=== PATIENT | male | born 1975 | race Caucasian/White ===

== ENCOUNTER 2016-11-30 16:05 | Observation (INO) | payer MEDICARE, OTHER ==
[~2016-11-30] VITALS: Ht 172.7 cm; Wt 77.2 kg
[2016-11-30] MEDS ORDERED: ONDANSETRON PF 4 MG/2 ML VIAL. IV PRN (17:00)
[2016-11-30] MEDS ORDERED: ACETAMINOPHEN 325 MG TABLET PO PRN (17:00)
[2016-11-30] MEDS ORDERED: KETOROLAC 30 MG/ML VIAL. IV PRN (17:00)
[2016-11-30 17:02] VITALS: BP 137/88
[2016-11-30 17:06] VITALS: BP 137/88
[2016-11-30 17:35] LABS: BASO # 0.2 x10^3/uL (0.0-0.2); BASO % 2 % (0-3); EOS # 0.3 x10^3/uL (0.0-0.7); EOS % 4 % (0-3); HEMATOCRIT 43.3 % (39.0-53.0); HEMOGLOBIN 14.6 g/dL (13.0-17.5); LYMPH # 2.8 x10^3/uL (1.0-4.8); LYMPH % 40 % (24-48); MEAN CORPUSCULAR HEMOGLOBIN 30 pg (25-35); MEAN CORPUSCULAR HGB CONC 34 g/dL (31-37); MEAN CORPUSCULAR VOLUME 89 fL (79-100); MONO # 0.7 x10^3/uL (0.0-1.1); MONO % 10 % (0-9); NEUT # 3.2 x10^3uL (1.8-7.7); NEUT % 45 % (31-73); PLATELET COUNT 183 x10^3/uL (140-400); RED BLOOD COUNT 4.85 x10^6/uL (4.30-5.70); RED CELL DISTRIBUTION WIDTH 14.8 % (11.5-14.5); WHITE BLOOD COUNT 7.1 x10^3/uL (4.0-11.0)
[2016-11-30 17:39] LABS: ALBUMIN 3.3 g/dL (3.4-5.0); CALCIUM 8.2 mg/dL (8.5-10.1); CREATININE 0.9 mg/dL (0.7-1.3); GFR 92.1; POTASSIUM 3.6 mmol/L (3.5-5.1); TOTAL BILIRUBIN 0.3 mg/dL (0.2-1.0); TOTAL PROTEIN 6.7 g/dL (6.4-8.2)
[2016-11-30] MEDS ORDERED: MELO15TA6 PO (17:46)
[2016-11-30] MEDS ORDERED: GABA-585 PO (17:46)
[2016-11-30] MEDS ORDERED: ESCI10TA10 PO (17:47)
[2016-11-30] MEDS ORDERED: CLON2TAB PO (17:47)
[2016-11-30] MEDS ORDERED: ZOLPIDEM 5 MG TABLET. PO PRN (18:00)
[2016-11-30] MEDS ORDERED: FENTANYL PF 250 MCG/5 ML VIAL. IV PRN (18:00)
[2016-11-30] MEDS ORDERED: IOHEXOL 300 MG/ML 75 ML VIAL. IV ONE (18:15)
[2016-11-30] MEDS ORDERED: FENTANYL PF 100 MCG/2 ML VIAL. IV PRN (18:15)
[2016-11-30 18:52] VITALS: BP 146/84
[2016-11-30 19:20] VITALS: BP 134/80
--- NOTE | 2016-11-30 19:28 | RAD ---
PROCEDURE CTA of the chest with contrast (pulmonary embolism protocol) 11/30/2016 HISTORY Shortness of breath. History of DVT. TECHNIQUE After the intravenous administration of 75 cc of Omnipaque 300, contiguous, 0.625 millimeter axial sections were obtained through the chest. 2 millimeter reconstructed axial and 3D MIP sagittal and coronal reconstructed images were obtained. One or more of the following individualized dose reduction techniques were utilized for this study: 1. Automated exposure control. 2. Adjustment of the mA and/or kV according to patient size. 3. Use of iterative reconstruction technique. FINDINGS No filling defect is seen within the major branches of either pulmonary artery. There is no CT evidence of pulmonary embolism. The thoracic aorta tapers normally. The heart is normal in size. No area of consolidation is seen. No pneumothorax or pleural effusion is noted. Mild S shaped curvature of the thoracolumbar spine is seen. IMPRESSION There is no CT evidence of pulmonary embolism. Electronically signed by: Hugo Desai MD (Nov 30, 2016 19:27:36)
[2016-11-30] MEDS: MELOXICAM 15 MG TABLET. PO SCH (20:13)
[2016-11-30] MEDS: GABAPENTIN 100 MG CAPSULE. PO SCH (20:14)
[2016-11-30] MEDS: ENOXAPARIN ** NOTE DOSE ** SYRINGE SQ SCH (20:14)
[2016-11-30] MEDS ORDERED: CLONAZEPAM 2 MG TABLET PO SCH (21:00)
[2016-11-30 21:45] VITALS: BP 145/83
[2016-11-30 23:35] VITALS: BP 119/71
[2016-12-01 01:30] VITALS: BP 121/78
[2016-12-01 03:35] VITALS: BP 113/68
[2016-12-01 05:55] VITALS: BP 119/79
[2016-12-01 06:36] LABS: BASO # 0.2 x10^3/uL (0.0-0.2); BASO % 2 % (0-3); EOS # 0.3 x10^3/uL (0.0-0.7); EOS % 5 % (0-3); HEMATOCRIT 44.2 % (39.0-53.0); HEMOGLOBIN 14.9 g/dL (13.0-17.5); LYMPH # 2.7 x10^3/uL (1.0-4.8); LYMPH % 42 % (24-48); MEAN CORPUSCULAR HEMOGLOBIN 30 pg (25-35); MEAN CORPUSCULAR HGB CONC 34 g/dL (31-37); MEAN CORPUSCULAR VOLUME 89 fL (79-100); MONO # 0.7 x10^3/uL (0.0-1.1); MONO % 11 % (0-9); NEUT # 2.5 x10^3uL (1.8-7.7); NEUT % 39 % (31-73); PLATELET COUNT 149 x10^3/uL (140-400); RED BLOOD COUNT 4.96 x10^6/uL (4.30-5.70); RED CELL DISTRIBUTION WIDTH 14.7 % (11.5-14.5); WHITE BLOOD COUNT 6.3 x10^3/uL (4.0-11.0)
[2016-12-01 06:46] LABS: CALCIUM 8.3 mg/dL (8.5-10.1); CREATININE 0.9 mg/dL (0.7-1.3); GFR 92.1; POTASSIUM 3.9 mmol/L (3.5-5.1)
[2016-12-01] MEDS ORDERED: TETANUS AND DIPHTHERIA TOX/PF 0.5 ML VIAL. VAX IM ONE (08:00)
[2016-12-01] MEDS ORDERED: ESCITALOPRAM 10 MG TABLET. PO SCH (09:00)
[2016-12-01] MEDS: ENOXAPARIN ** NOTE DOSE ** SYRINGE SQ SCH (09:22)
[2016-12-01] MEDS: GABAPENTIN 100 MG CAPSULE. PO SCH (09:22)
[2016-12-01] MEDS: MELOXICAM 15 MG TABLET. PO SCH (09:22)
[2016-12-01 11:46] VITALS: BP 144/78
[2016-12-01] MEDS ORDERED: APIX5TAB PO (11:47)
[2016-12-01] MEDS ORDERED: APIXABAN 5 MG TABLET. PO ONE (12:00)
== END 2016-12-01 12:40 | disposition home or self-care (01) ==
LOC: ER 16:10 → EDSTATUS 16:29 → INTOOBSV 16:30 → ICU 16:30
PROVIDERS: ADMIT Family Medicine; ATTEND Family Medicine
DX: M79.671 Pain in right foot (principal); W14.XXXD Fall from tree, subsequent encounter; Z72.0 Tobacco use
CPT/HCPCS: 36415; 71275; 80048; 80053; 83605; 85027; 85610; 87641; 90471; 90714; 96372; 96374; 96375; 99285; G0378; J1650; J3010; Q9967; G0379

== ENCOUNTER 2017-09-11 12:43 | Observation (INO) | payer OTHER ==
[~2017-09-11] VITALS: Ht 170.2 cm; Wt 72.1 kg
[~2017-09-11 12:43] MED LIST: APIX5TAB3 PO; CLON2TAB PO; GABA-585 PO; LEXAPRO10 MG PO; MELO15TA6 PO
[2017-09-11 14:14] LABS: AMPHETAMINE/METHAMPHETAMINE NEG (NEG); BARBITURATES NEG (NEG); BENZODIAZEPINES NEG (NEG); CANNABINOIDS NEG (NEG); COCAINE NEG (NEG); METHADONE NEG (NEG); OPIATES NEG (NEG); PHENCYCLIDINE NEG (NEG)
[2017-09-11] MEDS: NICOTINE POLACRILEX GUM 2 MG GUM. BC PRN ×3 (15:24→18:25)
[2017-09-11 15:29] LABS: BASO # 0.2 x10^3/uL (0.0-0.2); BASO % 1 % (0-3); EOS # 0.1 x10^3/uL (0.0-0.7); EOS % 1 % (0-3); HEMATOCRIT 50.9 % (39.0-53.0); HEMOGLOBIN 17.4 g/dL (13.0-17.5); LYMPH # 2.7 x10^3/uL (1.0-4.8); LYMPH % 21 % (24-48); MEAN CORPUSCULAR HEMOGLOBIN 30 pg (25-35); MEAN CORPUSCULAR HGB CONC 34 g/dL (31-37); MEAN CORPUSCULAR VOLUME 88 fL (79-100); MONO # 1.1 x10^3/uL (0.0-1.1); MONO % 8 % (0-9); NEUT # 8.9 x10^3uL (1.8-7.7); NEUT % 69 % (31-73); PLATELET COUNT 108 x10^3/uL (140-400); RED BLOOD COUNT 5.76 x10^6/uL (4.30-5.70); RED CELL DISTRIBUTION WIDTH 14.2 % (11.5-14.5)
[2017-09-11 15:38] LABS: ALBUMIN 3.7 g/dL (3.4-5.0); CALCIUM 9.3 mg/dL (8.5-10.1); GFR 81.6; TOTAL BILIRUBIN 0.4 mg/dL (0.2-1.0); TOTAL PROTEIN 7.4 g/dL (6.4-8.2)
[2017-09-11 15:45] LABS: ACETAMIN < 2.0 mcg/mL (10-30); ETHANOL < 10 mg/dL (0-10); SALIC 5.5 mg/dL (2.8-20.0)
[2017-09-11 15:46] LABS: POTASSIUM 2.8 mmol/L (3.5-5.1)
[2017-09-11] MEDS ORDERED: POTASSIUM CHLORIDE 20MEQ 100 ML IV SCH (17:00)
[2017-09-11] MEDS ORDERED: OLANZapine 2.5 MG TABLET PO ONE (17:00)
--- NOTE | 2017-09-11 17:04 | PHYS DOC ---
Past History Past Medical History: DVT, Schizophrenia Past Surgical History: No Surgical History Alcohol Use: Occasionally Drug Use: None Social History Narrative: history of drug abuse Adult General Chief Complaint Chief Complaint: MANIC BEHAVIOR HPI HPI Patient is a 41 year old M who presents with altered mental status over the past 2 weeks patient is an increasing paranoia. He said medication changes about 2 weeks ago at which time he was started on an Pulido. He was previously on Zyprexa 5 mg which was stopped 2 weeks ago when an Pulido was started due to increasing sedation. Review of Systems Review of Systems Constitutional: Denies fever or chills [] Eyes: Denies change in visual acuity, redness, or eye pain [] HENT: Denies nasal congestion or sore throat [] Respiratory: Denies cough or shortness of breath [] Cardiovascular: No additional information not addressed in HPI [] GI: Denies abdominal pain, nausea, vomiting, bloody stools or diarrhea [] : Denies dysuria or hematuria [] Musculoskeletal: Denies back pain or joint pain [] Integument: Denies rash or skin lesions [] Neurologic: Denies headache, focal weakness or sensory changes [] Endocrine: Denies polyuria or polydipsia [] All other systems were reviewed and found to be within normal limits, except as documented in this note. Family History Family History No pertinent family medical history reported Current Medications Current Medications Current Medications Medications (Trade) Dose Ordered Sig/Linn Start Time Stop Time Status Last Admin Dose Admin Nicotine Polacrilex (Nicorette Gum) 2 mg PRN Q1HR PRN 09/11/17 15:15 09/11/17 15:24 2 MG Olanzapine (ZyPREXA) 5 mg 1X ONCE 09/11/17 17:00 09/11/17 17:01 Potassium Chloride 100 ml @ 50 mls/hr Q1H 09/11/17 17:00 09/11/17 18:59 Allergies Allergies Allergies Coded Allergies Type Severity Reaction Last Updated Verified Penicillins Allergy Mild 11/30/16 Yes Physical Exam Physical Exam Constitutional: Well developed, well nourished, no acute distress, non-toxic appearance. [] HENT: Normocephalic, atraumatic, bilateral external ears normal, oropharynx moist, no oral exudates, nose normal. [] Eyes: PERRLA, EOMI, conjunctiva normal, no discharge. [] Neck: Normal range of motion, no tenderness, supple, no stridor. [] Cardiovascular:Heart rate regular rhythm, Lungs & Thorax: Bilateral breath sounds clear to auscultation [] Abdomen: Bowel sounds normal, soft, no tenderness, no masses, no pulsatile masses. [] Skin: Warm, dry, no erythema, no rash. [] Back: No tenderness, no CVA tenderness. [] Extremities: No tenderness, no cyanosis, no clubbing, ROM intact, no edema. [] Neurologic: Alert and oriented X 3, normal motor function, normal sensory function, no focal deficits noted. [] Psychologic: Abnormal behavior Current Patient Data Vital Signs Vital Signs Date Time Temp Pulse Resp B/P (MAP) Pulse Ox O2 Delivery O2 Flow Rate FiO2 09/11/17 12:50 98.3 106 18 99 Room Air Lab Results Laboratory Tests Test 09/11/17 13:54 09/11/17 15:03 Urine Opiates Screen Neg (NEG) Urine Methadone Screen Neg (NEG) Urine Barbiturates Neg (NEG) Urine Phencyclidine Screen Neg (NEG) Urine Amphetamine/Methamphetamine Neg (NEG) Urine Benzodiazepines Screen Neg (NEG) Urine Cocaine Screen Neg (NEG) Urine Cannabinoids Screen Neg (NEG) Urine Ethyl Alcohol Neg (NEG) White Blood Count 13.0 x10^3/uL (4.0-11.0) H Red Blood Count 5.76 x10^6/uL (4.30-5.70) H Hemoglobin 17.4 g/dL (13.0-17.5) Hematocrit 50.9 % (39.0-53.0) Mean Corpuscular Volume 88 fL (79-100) Mean Corpuscular Hemoglobin 30 pg (25-35) Mean Corpuscular Hemoglobin Concent 34 g/dL (31-37) Red Cell Distribution Width 14.2 % (11.5-14.5) Platelet Count 108 x10^3/uL (140-400) L Neutrophils (%) (Auto) 69 % (31-73) Lymphocytes (%) (Auto) 21 % (24-48) L Monocytes (%) (Auto) 8 % (0-9) Eosinophils (%) (Auto) 1 % (0-3) Basophils (%) (Auto) 1 % (0-3) Neutrophils # (Auto) 8.9 x10^3uL (1.8-7.7) H Lymphocytes # (Auto) 2.7 x10^3/uL (1.0-4.8) Monocytes # (Auto) 1.1 x10^3/uL (0.0-1.1) Eosinophils # (Auto) 0.1 x10^3/uL (0.0-0.7) Basophils # (Auto) 0.2 x10^3/uL (0.0-0.2) Sodium Level 142 mmol/L (136-145) Potassium Level 2.8 mmol/L (3.5-5.1) *L Chloride Level 103 mmol/L (98-107) Carbon Dioxide Level 29 mmol/L (21-32) Anion Gap 10 (6-14) Blood Urea Nitrogen 6 mg/dL (8-26) L Creatinine 1.0 mg/dL (0.7-1.3) Estimated GFR (Cockcroft-Gault) 81.6 BUN/Creatinine Ratio 6 (6-20) Glucose Level 107 mg/dL (70-99) H Calcium Level 9.3 mg/dL (8.5-10.1) Total Bilirubin 0.4 mg/dL (0.2-1.0) Aspartate Amino Transferase (AST) 16 U/L (15-37) Alanine Aminotransferase (ALT) 25 U/L (16-63) Alkaline Phosphatase 93 U/L (46-116) Total Protein 7.4 g/dL (6.4-8.2) Albumin 3.7 g/dL (3.4-5.0) Albumin/Globulin Ratio 1.0 (1.0-1.7) Salicylates Level 5.5 mg/dL (2.8-20.0) Salicylate Last Dose Date 09/11/17 Salicylate Last Dose Time 1500 Acetaminophen Level < 2.0 mcg/mL (10-30) L Acetaminophen Last Dose Date 09/11/17 Acetaminophen Last Dose Time 1500 Ethyl Alcohol Level < 10 mg/dL (0-10) EKG EKG Normal sinus rhythm Radiology/Procedures Radiology/Procedures [] Course & Med Decision Making Course & Med Decision Making Pertinent Labs and Imaging studies reviewed. (See chart for details) Tele-psych was consult. Please refer to consult note for specifics. Inpatient psychiatric admission for further evaluation as well as stabilization of current psychosis was recommended. medication changes were suggested. - Discontinuation of OxyContin mirtazapine and InVega was recommended. - Continue Lexapro 20 mg at bedtime. - Give Zyprexa 5 mg by mouth in the emergency room and 10 mg by mouth every at bedtime while the patient weights for psychiatric disposition. - Lorazepam 2 mg IM/by mouth every 4 hours when necessary anxiety/EPS Dragon Disclaimer Dragon Disclaimer This electronic medical record was generated, in whole or in part, using a voice recognition dictation system. Departure Departure: Impression: Primary Impression: Hypokalemia Additional Impression: Schizophrenia Disposition: ADMITTED INPATIENT Condition: STABLE Referrals: ALESSANDRO PHELPS MD (PCP) Problem Qualifiers Additional Impression: Schizophrenia Schizophrenia type: unspecified Qualified Codes: F20.9 - Schizophrenia, unspecified ALESSANDRO RAMOS MD Sep 11, 2017 17:04
[2017-09-11 17:35] VITALS: BP 139/80
[2017-09-11] MEDS ORDERED: POTASSIUM CHLORIDE 20 MEQ TABLET.ER. PO ONE (18:00)
[2017-09-11 18:48] VITALS: BP 139/80
--- NOTE | 2017-09-11 19:17 | PDOC ---
Exam Note: Franco Note: Please also refer to the separate dictated note~for this date of service dictated separately.~Patient seen individually. Discussed the patient with Nursing staff reviewed the chart.~Reviewed interim history and current functioning. Reviewed vital signs,~Labs/ Radiology~and current medications noted below. Continue current treatment with the changes noted in the dictated addendum note Assessment: Vital Signs: Vital Signs Date Time Temp Pulse Resp B/P (MAP) Pulse Ox O2 Delivery O2 Flow Rate FiO2 09/11/17 18:48 98.3 83 139/80 (99) 97 09/11/17 17:35 20 Room Air Labs: Laboratory Tests Test 09/11/17 13:54 09/11/17 15:03 Urine Opiates Screen Neg (NEG) Urine Methadone Screen Neg (NEG) Urine Barbiturates Neg (NEG) Urine Phencyclidine Screen Neg (NEG) Urine Amphetamine/Methamphetamine Neg (NEG) Urine Benzodiazepines Screen Neg (NEG) Urine Cocaine Screen Neg (NEG) Urine Cannabinoids Screen Neg (NEG) Urine Ethyl Alcohol Neg (NEG) White Blood Count 13.0 x10^3/uL (4.0-11.0) H Red Blood Count 5.76 x10^6/uL (4.30-5.70) H Hemoglobin 17.4 g/dL (13.0-17.5) Hematocrit 50.9 % (39.0-53.0) Mean Corpuscular Volume 88 fL (79-100) Mean Corpuscular Hemoglobin 30 pg (25-35) Mean Corpuscular Hemoglobin Concent 34 g/dL (31-37) Red Cell Distribution Width 14.2 % (11.5-14.5) Platelet Count 108 x10^3/uL (140-400) L Neutrophils (%) (Auto) 69 % (31-73) Lymphocytes (%) (Auto) 21 % (24-48) L Monocytes (%) (Auto) 8 % (0-9) Eosinophils (%) (Auto) 1 % (0-3) Basophils (%) (Auto) 1 % (0-3) Neutrophils # (Auto) 8.9 x10^3uL (1.8-7.7) H Lymphocytes # (Auto) 2.7 x10^3/uL (1.0-4.8) Monocytes # (Auto) 1.1 x10^3/uL (0.0-1.1) Eosinophils # (Auto) 0.1 x10^3/uL (0.0-0.7) Basophils # (Auto) 0.2 x10^3/uL (0.0-0.2) Sodium Level 142 mmol/L (136-145) Potassium Level 2.8 mmol/L (3.5-5.1) *L Chloride Level 103 mmol/L (98-107) Carbon Dioxide Level 29 mmol/L (21-32) Anion Gap 10 (6-14) Blood Urea Nitrogen 6 mg/dL (8-26) L Creatinine 1.0 mg/dL (0.7-1.3) Estimated GFR (Cockcroft-Gault) 81.6 BUN/Creatinine Ratio 6 (6-20) Glucose Level 107 mg/dL (70-99) H Calcium Level 9.3 mg/dL (8.5-10.1) Total Bilirubin 0.4 mg/dL (0.2-1.0) Aspartate Amino Transferase (AST) 16 U/L (15-37) Alanine Aminotransferase (ALT) 25 U/L (16-63) Alkaline Phosphatase 93 U/L (46-116) Total Protein 7.4 g/dL (6.4-8.2) Albumin 3.7 g/dL (3.4-5.0) Albumin/Globulin Ratio 1.0 (1.0-1.7) Salicylates Level 5.5 mg/dL (2.8-20.0) Salicylate Last Dose Date 09/11/17 Salicylate Last Dose Time 1500 Acetaminophen Level < 2.0 mcg/mL (10-30) L Acetaminophen Last Dose Date 09/11/17 Acetaminophen Last Dose Time 1500 Ethyl Alcohol Level < 10 mg/dL (0-10) Current Medications: Meds: Current Medications Nicotine Polacrilex (Nicorette Gum) 2 mg PRN Q1HR PRN BC SMOKING CESSATION Last administered on 09/11/17 18:25; Start 09/11/17 at 15:15 Olanzapine (ZyPREXA) 5 mg 1X ONCE PO Last administered on 09/11/17 16:57; Start 09/11/17 at 17:00; Stop 09/11/17 at 17:01; Status DC Potassium Chloride 100 ml @ 50 mls/hr Q1H IV Last administered on 12/10/17at 17:03; Start 09/11/17 at 17:00; Stop 09/11/17 at 17:43; Status DC Potassium Chloride (Klor-Con) 40 meq 1X ONCE PO ; Start 09/11/17 at 18:00; Stop 09/11/17 at 18:00; Status DC Apixaban (Eliquis) 10 mg BID PO ; Start 09/11/17 at 21:00; Stop 09/11/17 at 21 :00; Status DC Potassium Chloride (Klor-Con) 20 meq TID PO ; Start 09/11/17 at 20:00 Apixaban (Eliquis) 5 mg BID PO ; Start 09/11/17 at 21:00 Active Scripts Active Eliquis (Apixaban) 5 Mg Tablet 10 Mg PO BID Reported Lexapro (Escitalopram Oxalate) 10 Mg Tablet 1 Tab PO HS Klonopin (Clonazepam) 2 Mg Tablet 1 Tab PO HS Mobic (Meloxicam) 15 Mg Tablet 1 Tab PO DAILY Gabapentin 100 Mg Capsule 100 Mg PO BID I have reviewed the current psychotropics carefully including drug interactions. Risk benefit ratio favors no change other than as noted in my dictated progress note. Diagnosis: Problems: (1) Schizophrenia MARC MAURICIO MD Sep 11, 2017 19:17
[2017-09-11] MEDS ORDERED: ESCITALOPRAM OX20 MG PO (19:29)
[2017-09-11] MEDS ORDERED: OXCA150T PO (19:29)
[2017-09-11] MEDS ORDERED: PALI6TAB3 PO (19:29)
[2017-09-11] MEDS ORDERED: ESCITALOPRAM OX10 MG PO (19:50)
[2017-09-11] MEDS: OLANZapine 10 MG TABLET PO SCH (20:03)
[2017-09-11] MEDS: DIVALPROEX 125 MG CAP.SPRINK PO SCH (20:03)
[2017-09-11] MEDS: APIXABAN 5 MG TABLET. PO SCH (20:03)
[2017-09-11] MEDS: POTASSIUM CHLORIDE 20 MEQ TABLET.ER. PO SCH ×2 (20:03→20:16)
[2017-09-11 20:11] VITALS: BP 142/84
[2017-09-11] MEDS ORDERED: PNEUMOC CONJ VACC 23-VALENT 0.5 ML VIAL. VAX IM ONE (21:00)
[2017-09-11] MEDS ORDERED: APIXABAN 5 MG TABLET. PO SCH (21:00)
[2017-09-11 22:06] LABS: OVALOCYTES OCC; PLT ESTIMATE ADEQUATE (ADEQUATE)
[2017-09-11 22:24] LABS: PLATELET CLUMP PRESENT
[2017-09-11 22:25] LABS: STOMATOCYTES OCC
[2017-09-12] MEDS ORDERED: ACETAMINOPHEN 500 MG TABLET PO PRN (01:30)
[2017-09-12 01:58] VITALS: BP 124/73
--- NOTE | 2017-09-12 02:38 | CONS ---
DATE OF CONSULTATION: 09/11/2017 IDENTIFYING DATA: The patient is a 41-year-old male seen in bed [address] [facility] for a psychiatric consult requested by Dr. James on account of the patient appearing manic, grandiose, psychotic, for which he has been followed at the [facility]. I met with the patient's mother as well who lives in the home with the patient and the patient's 3 daughters and mother is very knowledgeable on the patient's history. CHIEF COMPLAINT: "I have been seeing Lucius at the [facility]." "He was doing well on Zyprexa 5 mg a day, but he was very sleepy and this stopped and changed to Invega along with Trileptal, but since then he has not been eating well and ____ he sees things and people in the home when no one is there, he has been agitated." Mother. HISTORY OF PRESENT ILLNESS: The patient has a history of schizoaffective disorder, bipolar type versus schizophrenia versus bipolar disorder, mixed with psychotic features. He has a remote history of drug abuse, but nothing recently. He was granted custody of his three children and lives in the home with his children and his mother. Previously, he had followed by Dr. Pope, but more recently with the [facility]. Mother states in the past, he was on Klonopin, Geodon, Risperdal, Abilify amongst other psychotropics, had failed all of this and in the recent past had been on Trileptal along with Lexapro 20 mg a day and Zyprexa as noted. Zyprexa was changed to Invega recently. The patient often sees a room full of people in his home when no one is there, talking about the devil and God, quite psychotic. The patient is also being seen aliens in his home. PAST PSYCHIATRIC HISTORY: As above. The patient was initially diagnosed with bipolar disorder versus schizoaffective disorder in 2000. The patient has a past history of drug abuse as well. PAST MEDICAL HISTORY: Past history of DVT, on Eliquis. CURRENT PSYCHOTROPICS: Celexa 20 mg a day, which was substituted for Lexapro 20 mg a day at the time of this patient's hospitalization. Invega 6 mg a day, ALLERGIES: PENICILLIN, BREXPIPRAZOLE, OXCARBAZEPINE, PALIPERIDONE, RISPERIDONE, ZIPRASIDONE. CODE STATUS: Full code. FAMILY HISTORY: Psychotic symptoms in his biological father. MENTAL STATUS EXAMINATION: The patient lying in bed, oriented to himself and situations. Associations loose. Speech coherent, at times a little pressured, somewhat socially inappropriate, appeared psychotic. No active suicidal or homicidal ideation. Attention span short. Language function intact. Intellect average. Insight somewhat limited. Judgment marginal. LABORATORY DATA: Reviewed. IMPRESSION: Schizoaffective disorder, bipolar type, mixed with psychotic features, bipolar 1 disorder, mixed with psychotic features; psychotic disorder, unspecified. Rest unchanged. PLAN: I had a lengthy discussion with the patient and his mother. We will proceed with a CT head since mother is unsure if one has been done and he is having significant visual hallucinations. We would like to make sure there is no intracranial lesion to account for these symptoms. Continue Celexa 20 mg a day. Start Zyprexa 10 mg at bedtime. His mother states the patient responded very well to Zyprexa other than over sedation and he was given 5 mg Zyprexa in the ER it certainly has not made him sedated. We will also start Depakote ER 500 mg p.o. at bedtime as a mood stabilizer. Check CBC, CMP, valproic acid level in [address] James, thank you for the opportunity to participate in your patient's care. We will follow with you. MAN Jhonny MAURICIO MD DR: MEET/dante JOB#: [id number] / [id number]
[2017-09-12 05:13] VITALS: BP 119/75
[2017-09-12] MEDS: NICOTINE POLACRILEX GUM 2 MG GUM. BC PRN ×4 (06:18→22:55)
[2017-09-12 06:59] LABS: CALCIUM 8.6 mg/dL (8.5-10.1); CREATININE 1.1 mg/dL (0.7-1.3); GFR 73.1; POTASSIUM 3.1 mmol/L (3.5-5.1)
[2017-09-12 07:05] LABS: BASO # 0.2 x10^3/uL (0.0-0.2); BASO % 2 % (0-3); EOS # 0.4 x10^3/uL (0.0-0.7); EOS % 4 % (0-3); HEMATOCRIT 47.4 % (39.0-53.0); HEMOGLOBIN 16.1 g/dL (13.0-17.5); LYMPH # 3.7 x10^3/uL (1.0-4.8); LYMPH % 36 % (24-48); MEAN CORPUSCULAR HEMOGLOBIN 30 pg (25-35); MEAN CORPUSCULAR HGB CONC 34 g/dL (31-37); MEAN CORPUSCULAR VOLUME 89 fL (79-100); MONO # 0.9 x10^3/uL (0.0-1.1); MONO % 9 % (0-9); NEUT % 49 % (31-73); PLATELET COUNT 105 x10^3/uL (140-400); RED BLOOD COUNT 5.32 x10^6/uL (4.30-5.70); RED CELL DISTRIBUTION WIDTH 14.1 % (11.5-14.5); WHITE BLOOD COUNT 10.2 x10^3/uL (4.0-11.0)
[2017-09-12] MEDS: APIXABAN 5 MG TABLET. PO SCH ×2 (09:10→20:43)
[2017-09-12] MEDS: CITALOPRAM 20 MG TABLET. PO SCH (09:10)
[2017-09-12] MEDS: POTASSIUM CHLORIDE 20 MEQ TABLET.ER. PO SCH ×3 (09:11→20:42)
[2017-09-12 10:43] VITALS: BP 144/96
--- NOTE | 2017-09-12 10:43 | HP ---
ADMIT DATE: 09/11/2017 HISTORY OF PRESENT ILLNESS: This 41-year-old gentleman has altered mental status here in the last 2 weeks with increased paranoia. He has had medication changes about 2 weeks ago and has been started on Invega and previously on Zyprexa 5 mg, which was stopped 2 weeks ago when he started the new medication due to increased sedation, although he did have the paranoia or the hallucinations when he was on the Zyprexa. In any case, the patient was also noted to have a low potassium of 2.8. He was admitted to the hospital for further evaluation and treatment to help evaluate that and to get his potassium up. FAMILY HISTORY: Positive for diabetes in the father. PAST MEDICAL HISTORY: Respiratory problem with asthma, schizophrenia, paranoid ideation. He has had some clotting problems of DVTs and is on Eliquis for clotting abnormalities. MEDICATIONS: Include Celexa 20 mg a day, Tylenol, Zyprexa 10 mg a day, Depakote 500 mg at bedtime, Eliquis 5 mg b.i.d., potassium 20 mEq t.i.d. and Nicorette gum. ALLERGIES: He has allergies to PENICILLIN, BREXPIPRAZOLE, OXCARBAZEPINE, PALIPERIDONE, RISPERIDONE, and ZIPRASIDONE. SOCIAL HISTORY: The patient does apparently smoke and trying to quit smoking. Denies hard drug use. REVIEW OF SYSTEMS: Basically unremarkable. Denies headaches, vision change, blurred vision, or double vision. Denies chest pain, shortness of breath, or abdominal pain. Denies any melena, hematochezia, or hematemesis. Genitourinary unremarkable. Neurologically stable except for his increase in paranoia and hallucinations. PHYSICAL EXAMINATION: GENERAL: This is a pleasant white male, very cooperative. VITAL SIGNS: Blood pressure 120/80, respiratory rate 18, pulse 60, afebrile. HEENT: The patient's head was atraumatic, normocephalic. Eyes: PERRLA without jaundice. Mouth and throat were normal. NECK: Supple. LUNGS: Clear. CARDIOVASCULAR: Regular sinus rhythm. ABDOMEN: Soft and nontender. No rebound or guarding. Positive bowel sounds. No hepatosplenomegaly was noted. EXTREMITIES: No clubbing, cyanosis, or edema. NEUROLOGIC: The patient was alert and oriented x 3. LABORATORY DATA: 2.8 up to 3.1. Sodium was stable as well as kidney function. White count went from 13 down to 10, hemoglobin and hematocrit 16/47. IMPRESSION AND PLAN: In any case, the patient will be admitted for further evaluation of hypokalemia, change in mental status, history of schizophrenia, hallucinations, and paranoia. The patient was seen by Dr. Angulo who is kind enough to review the patient and make timely suggestions about his care. We will get a CT scan per Dr. Angulo's recommendation and then hopefully ready for discharge home. He will still be continued to be discharged and have his medication monitored. ALESSANDRO PHELPS MD DR: LORI/dante JOB#: [id number] / [id number]
--- NOTE | 2017-09-12 13:04 | RAD ---
Indication: Altered mental status, 41-year-old. Technique: Noncontrast CT head was obtained. Comparison is from December 04, 2008. One or more of the following individualized dose reduction techniques were utilized for this examination: 1. Automated exposure control 2. Adjustment of the mA and/or kV according to patient size 3. Use of iterative reconstruction technique Findings: The ventricles are normal in size and configuration for age. There is no acute intracranial hemorrhage or extra-axial fluid collection. There is no mass effect or midline shift. There is no CT evidence of an acute infarct, robledo-white differentiation is maintained. There is no depressed skull fracture. The included paranasal sinuses and mastoid air cells are clear. Impression: No acute intracranial findings.
--- NOTE | 2017-09-12 18:37 | PDOC ---
Exam Note: Franco Note: Please also refer to the separate dictated note~for this date of service dictated separately.~Patient seen individually. Discussed the patient with Nursing staff reviewed the chart.~Reviewed interim history and current functioning. Reviewed vital signs,~Labs/ Radiology~and current medications noted below. Continue current treatment with the changes noted in the dictated addendum note Assessment: Vital Signs: Vital Signs Date Time Temp Pulse Resp B/P (MAP) Pulse Ox O2 Delivery O2 Flow Rate FiO2 09/12/17 10:43 97.9 63 20 144/96 (112) 98 Room Air I&O Intake and Output 09/12/17 07:00 Intake Total 590 ml Balance 590 ml Intake Oral 590 ml # Voids 4 Labs: Laboratory Tests Test 09/12/17 06:16 White Blood Count 10.2 x10^3/uL (4.0-11.0) Red Blood Count 5.32 x10^6/uL (4.30-5.70) Hemoglobin 16.1 g/dL (13.0-17.5) Hematocrit 47.4 % (39.0-53.0) Mean Corpuscular Volume 89 fL (79-100) Mean Corpuscular Hemoglobin 30 pg (25-35) Mean Corpuscular Hemoglobin Concent 34 g/dL (31-37) Red Cell Distribution Width 14.1 % (11.5-14.5) Platelet Count 105 x10^3/uL (140-400) L Neutrophils (%) (Auto) 49 % (31-73) Lymphocytes (%) (Auto) 36 % (24-48) Monocytes (%) (Auto) 9 % (0-9) Eosinophils (%) (Auto) 4 % (0-3) H Basophils (%) (Auto) 2 % (0-3) Neutrophils # (Auto) 5.0 x10^3uL (1.8-7.7) Lymphocytes # (Auto) 3.7 x10^3/uL (1.0-4.8) Monocytes # (Auto) 0.9 x10^3/uL (0.0-1.1) Eosinophils # (Auto) 0.4 x10^3/uL (0.0-0.7) Basophils # (Auto) 0.2 x10^3/uL (0.0-0.2) Sodium Level 144 mmol/L (136-145) Potassium Level 3.1 mmol/L (3.5-5.1) L Chloride Level 105 mmol/L (98-107) Carbon Dioxide Level 31 mmol/L (21-32) Anion Gap 8 (6-14) Blood Urea Nitrogen 9 mg/dL (8-26) Creatinine 1.1 mg/dL (0.7-1.3) Estimated GFR (Cockcroft-Gault) 73.1 Glucose Level 110 mg/dL (70-99) H Calcium Level 8.6 mg/dL (8.5-10.1) Current Medications: Meds: Current Medications Nicotine Polacrilex (Nicorette Gum) 2 mg PRN Q1HR PRN BC SMOKING CESSATION Last administered on 09/12/17 06:18; Start 09/11/17 at 15:15 Olanzapine (ZyPREXA) 5 mg 1X ONCE PO Last administered on 09/11/17 16:57; Start 09/11/17 at 17:00; Stop 09/11/17 at 17:01; Status DC Potassium Chloride 100 ml @ 50 mls/hr Q1H IV Last administered on 09/11/17 17:03; Start 09/11/17 at 17:00; Stop 09/11/17 at 17:43; Status DC Potassium Chloride (Klor-Con) 40 meq 1X ONCE PO ; Start 09/11/17 at 18:00; Stop 09/11/17 at 18:00; Status DC Apixaban (Eliquis) 10 mg BID PO ; Start 09/11/17 at 21:00; Stop 09/11/17 at 21 :00; Status DC Potassium Chloride (Klor-Con) 20 meq TID PO Last administered on 09/12/17 15: 09; Start 09/11/17 at 20:00 Apixaban (Eliquis) 5 mg BID PO Last administered on 09/12/17 09:10; Start at 21:00 Pneumococcal Polyvalent Vaccine (Pneumovax 23) 0.5 ml ONCE ONCE VAX IM ; Start 09/11/17 at 21:00; Stop 09/11/17 at 21:01; Status DC Divalproex Sodium (Depakote Sprinkles) 500 mg HS PO Last administered on 20:03; Start 09/11/17 at 21:00 Olanzapine (ZyPREXA) 10 mg QHS PO Last administered on 09/11/17 20:03; Start 09/11/17 at 21:00 Citalopram Hydrobromide (CeleXA) 20 mg DAILY PO Last administered on 09:10; Start 09/12/17 at 09:00 Acetaminophen (Tylenol) 650 mg PRN Q6HRS PRN PO PAIN / TEMP Last administered on 09/12/17 01:48; Start 09/12/17 at 01:30 Active Scripts Active Eliquis (Apixaban) 5 Mg Tablet 10 Mg PO BID Reported Escitalopram Oxalate 10 Mg Tablet 1 Tab PO DAILY Oxcarbazepine 150 Mg Tablet 150 Mg PO QHS Invega (Paliperidone) 6 Mg Tab.er.24 1 Tab PO DAILY I have reviewed the current psychotropics carefully including drug interactions. Risk benefit ratio favors no change other than as noted in my dictated progress note. Diagnosis: Problems: (1) Schizoaffective disorder, chronic condition with acute exacerbation (2) Schizophrenia MARC MAURICIO MD Sep 12, 2017 18:37
[2017-09-12 19:44] VITALS: BP 140/72
[2017-09-12] MEDS: DIVALPROEX 125 MG CAP.SPRINK PO SCH (20:42)
[2017-09-12] MEDS: OLANZapine 10 MG TABLET PO SCH (20:42)
[2017-09-12 23:03] VITALS: BP 133/86
[2017-09-13 06:31] VITALS: BP 122/77
[2017-09-13 07:06] LABS: CALCIUM 8.2 mg/dL (8.5-10.1); CREATININE 1.1 mg/dL (0.7-1.3); GFR 73.1; POTASSIUM 3.2 mmol/L (3.5-5.1)
[2017-09-13] MEDS: APIXABAN 5 MG TABLET. PO SCH (08:38)
[2017-09-13] MEDS: CITALOPRAM 20 MG TABLET. PO SCH (08:38)
[2017-09-13] MEDS: POTASSIUM CHLORIDE 20 MEQ TABLET.ER. PO SCH (08:38)
--- NOTE | 2017-09-13 09:06 | PN ---
DATE: 09/12/2017 SUBJECTIVE: The patient came in with a change in mental status. The patient is resting comfortably, is being adjusted on different medications Dr. Angulo has given to him. Potassium still a little bit low at 3.1 and I am still giving him return replacement potassium. OBJECTIVE: VITAL SIGNS: Otherwise, blood pressure is 140/70, respiratory rate 20, pulse 87, temperature 97.6. GENERAL: The patient is alert and oriented. LUNGS: Diminished, but clear. CARDIOVASCULAR: Stable. ABDOMEN: Soft. NEUROLOGIC: Does not seem to have any suicidal, homicidal, or hallucinatory behavior at the present time. IMPRESSION: Change in mental status as well as hypokalemia. Continue to monitor the patient accordingly and we will follow along with Dr. Angulo's expert advice on monitoring him in terms of change in his medication. IMPRESSION: Schizoaffective disorder, chronic condition with acute exacerbation of schizophrenia. ALESSANDRO PHELPS MD DR: LORI/dante JOB#: [id number] / [id number]
[2017-09-13] MEDS ORDERED: OLAN10TA9 PO (10:47)
[2017-09-13] MEDS ORDERED: DIVA125C3 PO (10:47)
[2017-09-13 11:10] VITALS: BP 154/92
--- NOTE | 2017-09-14 09:41 | PN ---
DATE: 09/12/2017 PSYCHIATRIC PROGRESS NOTE This is a late entry for 09/12/2017, covers the elements not covered in my initial note of 09/12/2017. SUBJECTIVE: I met with the patient evening of 09/12/2017. Discussed with nursing staff on a couple of occasions earlier in the day and met with the patient's mother as well the evening of 09/12/2017. Overall, the patient is doing better, less disorganized, more focused, less psychotic, less labile in his mood. We discussed at great length my recommendation for him to be transferred to an inpatient psychiatric facility to stabilize his psychotropics, but he is unsure of that. REVIEW OF SYSTEMS: No CV, , pulmonary, eye, ENT system symptoms on review. MENTAL STATUS EXAM: Oriented to himself and situation. Speech is coherent, less pressured. Abstraction fair, computation impaired, language function intact, attention span short. Mood and affect less labile. LABORATORY DATA: Reviewed. IMPRESSION: Unchanged from initial note. PLAN: Continue psychotropics mentioned in my initial note. MAN Jhonny MAURICIO MD DR: MEET/dante JOB#: [id number] / [id number]
== END 2017-09-13 13:30 ==
LOC: ER 12:43 → 1 SOUTH 17:31 → INTOOBSV 17:31
PROVIDERS: ADMIT Family Medicine; ATTEND Family Medicine
DX: F25.0 Schizoaffective disorder, bipolar type (principal); F31.60 Bipolar disorder, current episode mixed, unspecified; E87.6 Hypokalemia; Z87.01 Personal history of pneumonia (recurrent); J45.909 Unspecified asthma, uncomplicated; Z83.3 Family history of diabetes mellitus; F17.200 Nicotine dependence, unspecified, uncomplicated; Z86.718 Personal history of other venous thrombosis and embolism
CPT/HCPCS: 36415; 70450; 80048; 80053; 80307; 85025; 96365; 96366; 99285; G0378; G0379; G0480; J3480; G0479

== ENCOUNTER → 2017-10-10 | Outpatient (CLI) | payer OTHER ==
[2017-09-13 11:10] VITALS: BP 154/92
[~2017-10-10] MED LIST changes: +DIVA125C3 PO; +ESCITALOPRAM OX10 MG PO; +ESCITALOPRAM OX20 MG PO; +OLAN10TA9 PO; +OXCA150T PO; +PALI6TAB3 PO
== END | disposition home or self-care (01) ==
LOC: LAB 08:28
PROVIDERS: ATTEND Internal Medicine Cardiovascular Disease
DX: R07.9 Chest pain, unspecified (principal); F17.200 Nicotine dependence, unspecified, uncomplicated
CPT/HCPCS: 80061

== ENCOUNTER → 2017-10-20 | Outpatient (CLI) | payer OTHER ==
[2017-10-20 11:50] LABS: VAL ACID 63 mcg/mL (50-100)
== END | disposition home or self-care (01) ==
LOC: LAB 10:44
PROVIDERS: ATTEND Clinical Nurse Specialist Psychiatric/Mental Health, Adult
DX: Z51.81 Encounter for therapeutic drug level monitoring (principal); Z79.899 Other long term (current) drug therapy; F17.200 Nicotine dependence, unspecified, uncomplicated
CPT/HCPCS: 36415; 80164

== ENCOUNTER 2017-11-01 09:57 | Emergency (ER) | payer OTHER ==
[~2017-11-01] VITALS: Ht 170.2 cm; Wt 72.1 kg
[2017-11-01] MEDS ORDERED: HYDROmorphone PF 1 MG/ML DISP.SYRIN IM ONE (10:40)
[2017-11-01] MEDS ORDERED: ACETAMINOPHEN 500 MG TABLET PO ONE (10:40)
[2017-11-01 10:46] LABS: BACTERIA,URINE 0 /HPF (0-FEW); BILIRUBIN,URINE NEG (NEG); CLARITY,URINE CLEAR; COLOR,URINE YELLOW; GLUCOSE,URINE NEG (NEG); NITRITE,URINE NEG (NEG); RBC,URINE 0 /HPF (0-2); SQUAMOUS EPITHELIAL CELL,UR OCC /LPF; UROBILINOGEN,URINE 0.2 mg/dL (0.2 mg/dL); WBC,URINE 0 /HPF (0-4)
[2017-11-01] MEDS ORDERED: HYDROmorphone PF 2 MG/ML VIAL IM ONE (10:55)
[2017-11-01 10:57] LABS: INFLUENZA A PATIENT NEGATIVE (NEGATIVE); INFLUENZA B PATIENT NEGATIVE (NEGATIVE)
--- NOTE | 2017-11-01 11:10 | RAD ---
Two-view left rib detail series and PA view chest x-ray History: Left lower rib pain. Findings: No acute left rib fracture is evident. Comparison: Chest x-ray dated December 04, 2008. No acute lung infiltrate or pleural effusion or pulmonary edema or lung mass or pneumothorax is seen. The heart size, pulmonary vasculature, mediastinum and both kristy are unremarkable. Impression: No acute radiographic abnormality is seen. No acute left rib fracture.
[2017-11-01 11:25] VITALS: BP 142/60
[2017-11-01] MEDS ORDERED: GUAI1TBM10 PO (11:28)
[2017-11-01] MEDS ORDERED: HYDR-2758 PO (11:28)
--- NOTE | 2017-11-01 11:28 | PHYS DOC ---
Past History Past Medical History: DVT, Hypertension, Schizophrenia Past Surgical History: No Surgical History Alcohol Use: Occasionally Drug Use: None Adult General Chief Complaint Chief Complaint: ABDOMINAL PAIN HPI HPI he is a pleasant 41-year-old male with a known history of schizophrenia, hypertension and a prior DVT he sustained after fourth surgery and localized swelling. He is presently on a blood thinning medication Eloquis, who presents with left rib pain. he's had a URI-like symptoms for last 2 days with a nonproductive cough after being exposed to influenza A at the home. He began to cough several from sharp stabbing rib pain over the left flank that is worse with direct pressure, breathing, and coughing. When patient exhales entirely and holds his breath he has no chest wall pain. The pain is only there with coughing and chest wall movement. He denies any night sweats, fevers, weight loss, production from this cough. Patient is a smoker but denies any recent antibiotic use, steroid use, or inhaler use. He denies any facial pain but has mild nasal drainage and mild sore throat with cough. Patient denies any hematuria, dysuria urgency or frequency. He denies any abdominal pain, nausea, vomiting or diarrhea. Denies any direct trauma to his chest wall. Review of Systems Review of Systems Constitutional: Denies fever or chills [] Eyes: Denies change in visual acuity, redness, or eye pain [] HENT: Positive for nasal congestion and mild sore throat with cough Respiratory: Positive for cough nonproductive without shortness of breath just chest wall pain Cardiovascular: No additional information not addressed in HPI [] GI: Denies abdominal pain, nausea, vomiting, bloody stools or diarrhea [] : Denies dysuria or hematuria [] Musculoskeletal: Positive for left flank pain over the lower ribs] Integument: Denies rash or skin lesions [] Neurologic: Denies headache, focal weakness or sensory changes [] Endocrine: Denies polyuria or polydipsia [] All other systems were reviewed and found to be within normal limits, except as documented in this note. Current Medications Current Medications Current Medications Medications (Trade) Dose Ordered Sig/Linn Start Time Stop Time Status Last Admin Dose Admin Acetaminophen (Tylenol) 1,000 mg 1X ONCE 11/01/17 10:40 11/01/17 10:41 DC 11/01/17 10:40 1,000 MG Hydromorphone HCl (Dilaudid) 1 mg 1X ONCE 11/01/17 10:55 11/01/17 10:56 DC 11/01/17 10:46 1 MG Allergies Allergies Allergies Coded Allergies Type Severity Reaction Last Updated Verified Penicillins Allergy Intermediate 09/11/17 Yes brexpiprazole Allergy Intermediate 09/11/17 Yes oxcarbazepine Allergy Intermediate 09/11/17 Yes paliperidone Allergy Intermediate 09/11/17 Yes risperidone Allergy Intermediate seizure 09/11/17 Yes ziprasidone Allergy Intermediate seizure 09/11/17 Yes Physical Exam Physical Exam Of the vital signs recorded on this chart at this time within normal limits Constitutional: Well developed, well nourished, patient is uncomfortable when he coughs splinting at the left lower ribs, non-toxic appearance. [] HENT: Normocephalic, atraumatic, bilateral external ears normal, oropharynx moist mild erythema but, no oral exudates, nose normal. [] Eyes: PERRLA, EOMI, conjunctiva normal, no discharge. [] Neck: Normal range of motion, no tenderness, supple, no stridor. [] Cardiovascular:Heart rate regular rhythm, no murmur [] Lungs & Thorax: Bilateral breath sounds clear to auscultation he has reproducible rib pain over the lateral aspect of the left ribs, no obvious signs of trauma, no soft tissue swelling no ecchymoses.[] Abdomen: Bowel sounds normal, soft, no tenderness, no masses, no pulsatile masses. [] Skin: Warm, dry, no erythema, no rash. [] Back: No tenderness, no CVA tenderness. [] Extremities: No tenderness, no cyanosis, no clubbing, ROM intact, no edema. [] Neurologic: Alert and oriented X 3, normal motor function, normal sensory function, no focal deficits noted. [] Psychologic: Affect normal, judgement normal, mood normal. [] Current Patient Data Vital Signs Vital Signs Date Time Temp Pulse Resp B/P (MAP) Pulse Ox O2 Delivery O2 Flow Rate FiO2 11/01/17 10:46 16 98 Room Air 11/01/17 10:05 98.0 87 Lab Results Laboratory Tests Test 11/01/17 10:18 Urine Collection Type Unknown Urine Color Yellow Urine Clarity Clear Urine pH 7.0 Urine Specific [place] 1.020 Urine Protein Neg (NEG-TRACE) Urine Glucose (UA) Neg mg/dL (NEG) Urine Ketones (Stick) Neg mg/dL (NEG) Urine Blood Neg (NEG) Urine Nitrite Neg (NEG) Urine Bilirubin Neg (NEG) Urine Urobilinogen Dipstick 0.2 mg/dL (0.2 mg/dL) Urine Leukocyte Esterase Neg (NEG) Urine RBC 0 /HPF (0-2) Urine WBC 0 /HPF (0-4) Urine Squamous Epithelial Cells Occ /LPF Urine Bacteria 0 /HPF (0-FEW) Urine Mucus Slight /LPF Influenza Type A (Rapid) Negative (NEGATIVE) Influenza Type B (Rapid) Negative (NEGATIVE) EKG EKG [] Radiology/Procedures Radiology/Procedures [] [place] [address] IMAGING REPORT Signed PATIENT: MAYANK WILKES ACCOUNT: [id number] : 1975 LOCATION: ER AGE: 41 SEX: M EXAM STATUS: REG ER ORD. PHYSICIAN: MONSERRAT RENTERIA MD REASON: lower rib pain PROCEDURE: RIBS LEFT AND PA CHEST Two-view left rib detail series and PA view chest x-ray History: Left lower rib pain. Findings: No acute left rib fracture is evident. Comparison: Chest x-ray dated December 04, 2008. No acute lung infiltrate or pleural effusion or pulmonary edema or lung mass or pneumothorax is seen. The heart size, pulmonary vasculature, mediastinum and both kristy are unremarkable. Impression: No acute radiographic abnormality is seen. No acute left rib fracture. DICTATED AND SIGNED BY: JACQUE BAKER MD DATE: 11/01/17 1106 CC: MONSERRAT RENTERIA MD; ALESSANDRO PHELPS MD ~ Course & Med Decision Making Course & Med Decision Making Pertinent Labs and Imaging studies reviewed. (See chart for details) []Patient presents with rib pain began after coughing. Patient is not showing any signs of left lower lobe pneumonia, patient's urine is clear for signs of infection, kidney stone blood he denies any UTI symptoms, pyelonephritis symptoms, he denies any fevers or chills but is having URI-like symptoms. The chest pain is completely stopped with holding his breath and only listed of coughing and chest wall movement. It is also reproducible on physical exam with direct pressure over the chest wall. Patient's chest x-ray reviewed by me over the ribs as well at 11:20 AM read by radiology demonstrated no acute fracture, no infiltrate. he was given pain meds IM here in the ER and was feeling markedly better will be discharged with pain medications as well. Encouraged to quit smoking discharge: I've spoken with the patient and/or caregivers. I've explained the patient's condition, diagnosis and treatment plan based on information available to me at this time. I've answered the patient's and/or caregivers questions and addressed any concerns. The patient and/or caregivers have a good understanding the patient's diagnosis, condition and treatment plan as can be expected at this point. Vital signs have been stabilized. The patient's condition is stable for discharge from the emergency department. The patient will pursue further outpatient evaluation with her primary care provider or other designated consulting physician as outlined in the discharge instructions. Patient and/or caregivers are agreeable to this plan of care and follow-up instructions have been explained in detail. The patient and/or caregivers have received these instructions in written format and expressed understanding of these discharge instructions. The patient and her caregivers are aware that if any significant change in condition or worsening of symptoms should prompt him to immediately return to this of the closest emergency department. If an emergent department is not readily available I would encourage him to call 911. Abdiaziz Disclaimer Dragon Disclaimer This electronic medical record was generated, in whole or in part, using a voice recognition dictation system. Departure Departure: Impression: Primary Impression: Chest wall pain Additional Impression: Upper respiratory infection Referrals: ALESSANDRO PHELPS MD (PCP) Patient Instructions: Chest Wall Pain, Upper Respiratory Infection, Adult Additional Instructions: discharge: I've spoken with the patient and/or caregivers. I've explained the patient's condition, diagnosis and treatment plan based on information available to me at this time. I've answered the patient's and/or caregivers questions and addressed any concerns. The patient and/or caregivers have a good understanding the patient's diagnosis, condition and treatment plan as can be expected at this point. Vital signs have been stabilized. The patient's condition is stable for discharge from the emergency department. The patient will pursue further outpatient evaluation with her primary care provider or other designated consulting physician as outlined in the discharge instructions. Patient and/or caregivers are agreeable to this plan of care and follow-up instructions have been explained in detail. The patient and/or caregivers have received these instructions in written format and expressed understanding of these discharge instructions. The patient and her caregivers are aware that if any significant change in condition or worsening of symptoms should prompt him to immediately return to this of the closest emergency department. If an emergent department is not readily available I would encourage him to call 911. Scripts Guaifenesin/Dextromethorphan (MUCINEX DM ER 1,200-60 MG TAB) 1 Each Tbmp.12hr 1 TAB PO BID, #20 TAB 1 Refill Prov: MONSERRAT RENTERIA MD 11/01/17 Hydrocodone Bit/Acetaminophen (HYDROCODONE-APAP 5-325 ) 1 Each Tablet 1 TAB PO PRN Q6HRS Y for PAIN for 5 Days, #12 TAB 0 Refills Prov: MONSERRAT RENTERIA MD 11/01/17 Problem Qualifiers MONSERRAT RENTERIA MD Nov 01, 2017 11:28
== END 2017-11-01 11:33 | disposition home or self-care (01) ==
LOC: ER 09:57
DX: R07.89 Other chest pain (principal); J06.9 Acute upper respiratory infection, unspecified; I10 Essential (primary) hypertension; F20.9 Schizophrenia, unspecified; Z86.718 Personal history of other venous thrombosis and embolism; Z88.0 Allergy status to penicillin; Z88.8 Allergy status to other drugs, medicaments and biological substances
CPT/HCPCS: 71101; 81001; 87804; 96372; 99285; J1170

== ENCOUNTER 2017-11-15 19:58 | Emergency (ER) | payer OTHER ==
[~2017-11-15] VITALS: Ht 170.2 cm; Wt 84.4 kg
[~2017-11-15 19:58] MED LIST changes: +GUAI1TBM10 PO; +HYDR-2758 PO
--- NOTE | 2017-11-15 20:00 | ED.ADGEN ---
Past History Past Medical History: DVT, Hypertension, Schizophrenia Past Surgical History: No Surgical History Alcohol Use: Occasionally Drug Use: None Adult General Chief Complaint Chief Complaint " I shut the car door out our family dog.. Pepper... ..and he started biting my daughter.. and I tried to stop him biting. and he got me.. I got the door open and Pepper was fine... he is up to date with shots... He seems normal...just he was hurt and he was biting everyone near him.. he about 9 to 10 yrs old...We keep him inside...expect when out in our fenced yard..." HPI HPI Patient is a 42 year old male who presents with above hx and complaints of dog bite on Rt. hand. Distal neurovascular intact. Multiple puncture wounds to Rt. hand. Dog reportedly is family dog and up to date with vaccinations. Dog is always confined. Patient is right-hand dominant. History immunosuppression. Review of Systems Review of Systems Constitutional: Denies fever or chills [] Eyes: Denies change in visual acuity, redness, or eye pain [] HENT: Denies nasal congestion or sore throat [] Respiratory: Denies cough or shortness of breath [] Cardiovascular: No additional information not addressed in HPI [] GI: Denies abdominal pain, nausea, vomiting, bloody stools or diarrhea [] : Denies dysuria or hematuria [] Musculoskeletal: Denies back pain or joint pain [] Integument: Denies rash or skin lesions []dog bite puncture wounds Neurologic: Denies headache, focal weakness or sensory changes [] Endocrine: Denies polyuria or polydipsia [] All other systems were reviewed and found to be within normal limits, except as documented in this note. Family History Family History Noncontributory Current Medications Current Medications Current Medications Medications (Trade) Dose Ordered Sig/Linn Start Time Stop Time Status Last Admin Dose Admin Ceftriaxone Sodium (Rocephin Im) 1 gm 1X ONCE 11/15/17 20:30 11/15/17 20:31 DC 11/15/17 21:04 1 GM Ibuprofen (Motrin) 800 mg 1X ONCE 11/15/17 20:45 11/15/17 20:46 DC 11/15/17 21:04 800 MG Allergies Allergies Allergies Coded Allergies Type Severity Reaction Last Updated Verified Penicillins Allergy Intermediate 09/11/17 Yes brexpiprazole Allergy Intermediate 09/11/17 Yes oxcarbazepine Allergy Intermediate 09/11/17 Yes paliperidone Allergy Intermediate 09/11/17 Yes risperidone Allergy Intermediate seizure 09/11/17 Yes ziprasidone Allergy Intermediate seizure 09/11/17 Yes Physical Exam Physical Exam Constitutional: Well developed, well nourished, moderately acute distress, non- toxic appearance. [] HENT: Normocephalic, atraumatic, bilateral external ears normal, oropharynx moist, no oral exudates, nose normal. [] Eyes: PERRLA, EOMI, conjunctiva normal, no discharge. [] Neck: Normal range of motion, no tenderness, supple, no stridor. [] Cardiovascular:Heart rate regular rhythm, no murmur [] Lungs & Thorax: Bilateral breath sounds clear to auscultation [] Abdomen: Bowel sounds normal, soft, no tenderness, no masses, no pulsatile masses. [] Skin: Warm, dry, no erythema, no rash. Multiple puncture wounds to right hand Back: No tenderness, no CVA tenderness. [] Extremities: Right hand tenderness, no cyanosis, no clubbing, ROM intact, right hand edema. [] Neurologic: Alert and oriented X 3, normal motor function, normal sensory function, no focal deficits noted. [] Psychologic: Affect normal, judgement normal, mood normal. [] Current Patient Data Vital Signs Vital Signs Date Time Temp Pulse Resp B/P (MAP) Pulse Ox O2 Delivery O2 Flow Rate FiO2 11/15/17 21:24 82 18 131/78 (95) 97 Room Air 11/15/17 20:23 98.0 EKG EKG [] Radiology/Procedures Radiology/Procedures My interpretation x-ray shows no obvious fracture. No foreign bodies.[] Course & Med Decision Making Course & Med Decision Making Pertinent Labs and Imaging studies reviewed. (See chart for details). Patient to keep "pepper" confined for next two weeks. Patient keep hand clean and dry. Polysporin 4 times a day. May take Tylenol and ibuprofen over-the- counter for pain. Patient take clindamycin 300 mg 4 times a day. Patient follow- up primary care. Discussed risk of deep wound to hand and risk of secondary infection. Must follow-up. [] Final Impression Final Impression 1. Dog Bite[]-right hand Problems: Dragon Disclaimer Dragon Disclaimer This electronic medical record was generated, in whole or in part, using a voice recognition dictation system. KARYN WING MD Nov 15, 2017 20:00
[2017-11-15] MEDS ORDERED: cefTRIAXone IM 1 GM VIAL IM ONE (20:30)
[2017-11-15] MEDS ORDERED: CLIN300C8 PO (20:34)
[2017-11-15] MEDS ORDERED: IBUPROFEN 600 MG TABLET. PO ONE (20:45)
[2017-11-15 21:24] VITALS: BP 131/78
--- NOTE | 2017-11-16 13:12 | RAD ---
EXAM: Right hand 3 views. HISTORY: Dog bite, laceration. COMPARISON: None. FINDINGS: There is soft tissue gas along the 1st interspace. There is no radiopaque foreign body. Soft tissue swelling is noted dorsally. 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 No fractures are identified. Alignment is maintained. IMPRESSION: 1. Laceration with soft tissue gas. No radiopaque foreign body or fracture.
== END 2017-11-15 21:25 | disposition home or self-care (01) ==
LOC: ER 19:58
DX: S61.451A Open bite of right hand, initial encounter (principal); F20.9 Schizophrenia, unspecified; I10 Essential (primary) hypertension; Z86.718 Personal history of other venous thrombosis and embolism; Z88.0 Allergy status to penicillin; Z88.8 Allergy status to other drugs, medicaments and biological substances; W54.0XXA Bitten by dog, initial encounter; Y93.89 Activity, other specified; Y99.8 Other external cause status; Y92.89 Other specified places as the place of occurrence of the external cause
CPT/HCPCS: 73130; 96372; 99284; J0696

== ENCOUNTER → 2017-11-24 | Outpatient (CLI) | payer OTHER ==
[2017-11-15 21:24] VITALS: BP 131/78
[~2017-11-24] MED LIST changes: +CLIN300C8 PO
[2017-11-24] MEDS: IOHEXOL 300 MG/ML 75 ML VIAL. IV ONE (08:55)
--- NOTE | 2017-11-24 10:37 | RAD ---
CTA of the chest with and without contrast Clinical indications: Chest pain when breathing. Technique: Noncontrast axial localizer was performed. After IV infusion of 75 cc of Omnipaque 300, helical CT scanning of the chest was performed using the CT pulmonary embolism protocol. A coronal MIP reconstruction was generated. PQRS Compliance Statement: One or more of the following individualized dose reduction techniques were utilized for this examination: 1. Automated exposure control 2. Adjustment of the mA and/or kV according to patient size 3. Use of iterative reconstruction technique Comparison: Chest CT dated November 30, 2016. Findings: No pulmonary embolism is evident. No thoracic aortic dissection or focal aneurysmal dilatation is evident. The heart size is normal and no pericardial effusion is seen. Mediastinal and bilateral hilar lymph nodes are seen. No significant change from the previous study. There is an increase in interstitium and small centrilobular nodules bilaterally especially within the lower lobes. No lung consolidation or lung mass is seen. No pleural effusion or pneumothorax is evident. The proximal bronchial tree is patent. No osteolytic process is seen. No adrenal mass is evident. IMPRESSION: No pulmonary embolism. Increase in interstitium and small centrilobular nodules bilaterally especially within the lower lobes. This may be seen with interstitial pneumonitis or distal airway infectious or inflammatory disease.
== END | disposition home or self-care (01) ==
LOC: CT 08:38
PROVIDERS: ATTEND Nurse Practitioner Family
DX: R07.1 Chest pain on breathing (principal); R91.8 Other nonspecific abnormal finding of lung field; F17.200 Nicotine dependence, unspecified, uncomplicated
CPT/HCPCS: 71275; Q9967

== ENCOUNTER → 2017-12-12 | Outpatient (CLI) | payer OTHER ==
[2017-11-15 21:24] VITALS: BP 131/78
[2017-12-13 02:10] LABS: IMMUNOGLOBULIN A 200 mg/dL (90-386); IMMUNOGLOBULIN G 848 mg/dL (700-1600)
== END | disposition home or self-care (01) ==
LOC: LAB 13:59
PROVIDERS: ATTEND Internal Medicine Pulmonary Disease
DX: R91.1 Solitary pulmonary nodule (principal); I10 Essential (primary) hypertension; F17.210 Nicotine dependence, cigarettes, uncomplicated; Z79.899 Other long term (current) drug therapy
CPT/HCPCS: 82784; 86162; 86703

== ENCOUNTER → 2018-01-17 | Outpatient (CLI) | payer OTHER ==
[2018-01-17 09:32] LABS: ALBUMIN 3.7 g/dL (3.4-5.0); DIRECT BILIRUBIN 0.1 mg/dL (0.0-0.2); TOTAL BILIRUBIN 0.4 mg/dL (0.2-1.0); TOTAL PROTEIN 7.1 g/dL (6.4-8.2)
== END | disposition home or self-care (01) ==
LOC: LAB 08:55
PROVIDERS: ATTEND Internal Medicine Cardiovascular Disease
DX: E78.5 Hyperlipidemia, unspecified (principal); I10 Essential (primary) hypertension; Z79.899 Other long term (current) drug therapy
CPT/HCPCS: 36415; 80061; 80076

== ENCOUNTER 2018-03-26 20:03 | Emergency (ER) | payer OTHER ==
[~2018-03-26] VITALS: Ht 170.2 cm; Wt 83.0 kg
[2018-03-26 20:07] VITALS: BP 149/121
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
[2018-03-26] MEDS ORDERED: IV RINGERS SOLUTION,LACTATED 1,000 ML IV SCH (20:22)
--- NOTE | 2018-03-26 21:01 | EKG ---
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
[2018-03-26 21:24] LABS: BASO # 0.1 x10^3/uL (0.0-0.2); BASO % 1 % (0-3); EOS # 0.2 x10^3/uL (0.0-0.7); EOS % 1 % (0-3); HEMATOCRIT 44.5 % (39.0-53.0); HEMOGLOBIN 15.5 g/dL (13.0-17.5); LYMPH # 2.6 x10^3/uL (1.0-4.8); LYMPH % 20 % (24-48); MEAN CORPUSCULAR HEMOGLOBIN 31 pg (25-35); MEAN CORPUSCULAR HGB CONC 35 g/dL (31-37); MEAN CORPUSCULAR VOLUME 89 fL (79-100); MONO # 1.4 x10^3/uL (0.0-1.1); MONO % 11 % (0-9); NEUT # 8.6 x10^3uL (1.8-7.7); NEUT % 67 % (31-73); PLATELET COUNT 188 x10^3/uL (140-400); RED BLOOD COUNT 5.01 x10^6/uL (4.30-5.70); RED CELL DISTRIBUTION WIDTH 13.9 % (11.5-14.5); WHITE BLOOD COUNT 12.9 x10^3/uL (4.0-11.0)
[2018-03-26 21:35] LABS: ALBUMIN 3.3 g/dL (3.4-5.0); CALCIUM 8.6 mg/dL (8.5-10.1); DIRECT BILIRUBIN 0.1 mg/dL (0.0-0.2); GFR 81.2; POTASSIUM 3.1 mmol/L (3.5-5.1); TOTAL BILIRUBIN 0.4 mg/dL (0.2-1.0); TOTAL PROTEIN 6.8 g/dL (6.4-8.2)
[2018-03-26] MEDS ORDERED: oxyCODONE/APAP 10/325 1 TAB TABLET PO ONE (21:45)
[2018-03-26] MEDS ORDERED: SULF1TAB24 PO (21:45)
[2018-03-26] MEDS ORDERED: SMZ/TMP 800/160MG TABLET. PO ONE (22:00)
[2018-03-26] MEDS ORDERED: POTASSIUM CHLORIDE 20 MEQ/15 ML ORAL LIQUID. PO ONE (22:30)
== END 2018-03-26 22:22 | disposition home or self-care (01) ==
LOC: ER 20:03 → EEVIPCON 20:03 → ER 22:22
DX: S02.2XXA Fracture of nasal bones, initial encounter for closed fracture (principal); S02.31XA Fracture of orbital floor, right side, initial encounter for closed fracture; R04.0 Epistaxis; S20.222A Contusion of left back wall of thorax, initial encounter; S20.221A Contusion of right back wall of thorax, initial encounter; S20.212A Contusion of left front wall of thorax, initial encounter; S20.211A Contusion of right front wall of thorax, initial encounter; D72.829 Elevated white blood cell count, unspecified; E87.6 Hypokalemia; F20.9 Schizophrenia, unspecified; Z88.0 Allergy status to penicillin; Z88.8 Allergy status to other drugs, medicaments and biological substances; Y08.89XA Assault by other specified means, initial encounter; Y93.89 Activity, other specified; Y99.8 Other external cause status; Y92.89 Other specified places as the place of occurrence of the external cause
CPT/HCPCS: 36415; 70450; 70486; 71046; 72125; 80048; 80076; 85025; 85610; 85730; 93005; 96360; 96361; 99285; J7120

== ENCOUNTER → 2018-08-29 | Outpatient (CLI) | payer OTHER ==
[~2018-08-29] MED LIST changes: +HYDR-2155 PO; -HYDR-2758 PO; -OXCA150T PO; +OXCA150T19 PO; +SULF1TAB24 PO
== END | disposition home or self-care (01) ==
LOC: LAB 09:21
PROVIDERS: ATTEND Internal Medicine Cardiovascular Disease
DX: Z86.718 Personal history of other venous thrombosis and embolism (principal)
CPT/HCPCS: 85730

== ENCOUNTER 2018-11-14 00:22 | Emergency (ER) | payer OTHER ==
[2018-11-14] MEDS ORDERED: predniSONE 20 MG TABLET ONE ×2 (01:43→01:45)
[2018-11-14] MEDS ORDERED: predniSONE 10 MG TABLET ONE ×2 (01:43→01:45)
[2018-11-14] MEDS ORDERED: AZITHROMYCIN 250 MG TABLET. ONE ×2 (01:44→01:45)
[2018-11-14] MEDS ORDERED: ALBUTEROL SULFATE 8GM INHALER. ONE (02:00)
[2018-11-14 05:14] LABS: INFLUENZA A PATIENT NEGATIVE (NEGATIVE); INFLUENZA B PATIENT NEGATIVE (NEGATIVE)
--- NOTE | 2018-11-14 06:24 | ED.ADGEN ---
Past History Past Medical History: Bronchitis, COPD, Pneumonia, Schizophrenia Past Surgical History: Other Smoking: Cigarettes Alcohol Use: Occasionally Drug Use: None Adult General Chief Complaint Chief Complaint ".. I have had asthma... before... and bronchitis... I caught a cold... a couple days ago.. and have been coughing my head off.... I ve been coughing so hard it.... make my chest hurt...." HPI HPI Patient is a 43 year old male who presents with above complaints and history. Patient does continue to smoke. Patient does not know his best peak flow. It has never been admitted for his asthma. Has had periodic episodes of bronchitis. No flu vaccination this season. Has been around other individuals with upper respiratory infection this past week. No history of immunosuppression. No history of travel. Does not follow with her regular physician. Review of Systems Review of Systems Constitutional: Subjective fever or chills [] Eyes: Denies change in visual acuity, redness, or eye pain [] HENT: History of nasal congestion and sore throat [] Respiratory: History of cough and wheezing. Production of discolored green sputum. Cardiovascular: No additional information not addressed in HPI [] GI: Denies abdominal pain, nausea, vomiting, bloody stools or diarrhea [] : Denies dysuria or hematuria [] Musculoskeletal: Denies back pain or joint pain [] Integument: Denies rash or skin lesions [] Neurologic: Denies headache, focal weakness or sensory changes [] Endocrine: Denies polyuria or polydipsia [] All other systems were reviewed and found to be within normal limits, except as documented in this note. Family History Family History Noncontributory Current Medications Current Medications Current Medications Medications (Trade) Dose Ordered Sig/Linn Start Time Stop Time Status Last Admin Dose Admin Azithromycin (Zithromax) 500 mg STK-MED ONCE 11/14/18 01:45 11/14/18 04:00 DC Prednisone (Prednisone) 10 mg STK-MED ONCE 11/14/18 01:45 11/14/18 04:00 DC Allergies Allergies Allergies Coded Allergies Type Severity Reaction Last Updated Verified Penicillins Allergy Intermediate 09/11/17 Yes brexpiprazole Allergy Intermediate 09/11/17 Yes oxcarbazepine Allergy Intermediate 09/11/17 Yes paliperidone Allergy Intermediate 09/11/17 Yes risperidone Allergy Intermediate seizure 09/11/17 Yes ziprasidone Allergy Intermediate seizure 09/11/17 Yes Physical Exam Physical Exam Constitutional: Moderate distress, non-toxic appearance. [] HENT: Normocephalic, atraumatic, bilateral external ears normal, oropharynx moist, postnasal drainage and erythema of pharynx, no oral exudates, nose swollen turbinates and clear rhinorrhea Eyes: PERRLA, EOMI, conjunctiva normal, no discharge. [] Neck: Normal range of motion, no tenderness, supple, no stridor. [] Cardiovascular: Tachycardia Heart rate regular rhythm, no murmur [] Lungs & Thorax: Bilateral breath sounds equal at apex with diffuse wheezes auscultation []does have some rhonchi on posterior lung archuleta. Abdomen: Bowel sounds normal, soft, no tenderness, no masses, no pulsatile masses. [] Skin: Warm, dry, no erythema, no rash. [] Back: No tenderness, no CVA tenderness. [] Extremities: No tenderness, no cyanosis, no clubbing, ROM intact, no edema. [] No cording appreciated Neurologic: Alert and oriented X 3, normal motor function, normal sensory function, no focal deficits noted. [] Psychologic: Affect anxious, judgement normal, mood normal. [] Current Patient Data Lab Results Laboratory Tests Test 11/14/18 00:45 11/14/18 01:30 Influenza Type A (Rapid) Negative (NEGATIVE) Influenza Type B (Rapid) Negative (NEGATIVE) Group A Streptococcus Rapid Negative (NEGATIVE) Creatine Kinase 176 U/L (39-308) Troponin I Quantitative < 0.017 ng/mL (0-0.055) EKG EKG My interpretation of EKG shows a sinus rhythm at 91 bpm. There is some nonspecific contour changes in anterior lateral areas. No findings acute STEMI of contralateral changes.[] Radiology/Procedures Radiology/Procedures My interpretation of chest x-ray shows some findings consistent with chronic lung disease COPD, there is some bronchograms on lateral film consistent with pneumonia. No large loculations.[] Course & Med Decision Making Course & Med Decision Making Pertinent Labs and Imaging studies reviewed. (See chart for details) Encouraged patient to stop smoking. Patient take prednisone 50 mg a day for 5 days. Patient uses MDI 2 puffs 4 times a day. Patient to document peak flows morning pre-and post treatment. Patient to take his Zithromax 250 mg a day 5 days. Patient return if any concerns. Patient encouraged follow-up with primary care. [] Final Impression Final Impression 1. Asthma exacerbation 2. Pneumonia[] Dragon Disclaimer [place] Disclaimer This electronic medical record was generated, in whole or in part, using a voice recognition dictation system. Discharge Summary Visit Information Final Diagnosis Problems Medical Problems: (1) Bronchitis Status: Acute Brief Hospital Course Allergies Allergies Coded Allergies Type Severity Reaction Last Updated Verified Penicillins Allergy Intermediate 09/11/17 Yes brexpiprazole Allergy Intermediate 09/11/17 Yes oxcarbazepine Allergy Intermediate 09/11/17 Yes paliperidone Allergy Intermediate 09/11/17 Yes risperidone Allergy Intermediate seizure 09/11/17 Yes ziprasidone Allergy Intermediate seizure 09/11/17 Yes Lab Results Laboratory Tests Test 11/14/18 00:45 11/14/18 01:30 Influenza Type A (Rapid) Negative (NEGATIVE) Influenza Type B (Rapid) Negative (NEGATIVE) Group A Streptococcus Rapid Negative (NEGATIVE) Creatine Kinase 176 U/L (39-308) Troponin I Quantitative < 0.017 ng/mL (0-0.055) Brief Hospital Course Mr. Lu is a 43 old male who presented with hx bronchitis, asthma. Pt. appears to have some findings of pneumonia. Discharge Information Condition at Discharge: Improved, Stable Disposition/Orders: D/C to Home Dischare Medications Current Medications Prednisone (Prednisone) 20 mg STK-MED ONCE .ROUTE ; Start 11/14/18 at 01:43; Stop 11/14/18 at 03:23; Status DC Prednisone (Prednisone) 10 mg STK-MED ONCE .ROUTE ; Start 11/14/18 at 01:43; Stop 11/14/18 at 03:23; Status DC Azithromycin (Zithromax) 250 mg STK-MED ONCE .ROUTE ; Start 11/14/18 at 01:44; Stop 11/14/18 at 03:23; Status DC Prednisone (Prednisone) 40 mg STK-MED ONCE .ROUTE ; Start 11/14/18 at 01:45; Stop 11/14/18 at 04:00; Status DC Prednisone (Prednisone) 10 mg STK-MED ONCE .ROUTE ; Start 11/14/18 at 01:45; Stop 11/14/18 at 04:00; Status DC Azithromycin (Zithromax) 500 mg STK-MED ONCE .ROUTE ; Start 11/14/18 at 01:45; Stop 11/14/18 at 04:00; Status DC Active Scripts Active Bactrim Ds Tablet (Sulfamethoxazole/Trimethoprim) 1 Each Tablet 1 Tab PO BID Clindamycin Hcl 300 Mg Capsule 300 Mg PO QID 7 Days Mucinex Dm Er 1,200-60 Mg Tab (Guaifenesin/Dextromethorphan) 1 Each Tbmp.12hr 1 Tab PO BID Hydrocodone-Apap 5-325 (Hydrocodone Bit/Acetaminophen) 1 Each Tablet 1 Tab PO PRN Q6HRS PRN 5 Days Olanzapine 10 Mg Tablet 10 Mg PO QHS 7 Days Divalproex Sodium 125 Mg Cap.sprink 500 Mg PO HS 7 Days Eliquis (Apixaban) 5 Mg Tablet 10 Mg PO BID Reported Escitalopram Oxalate 10 Mg Tablet 1 Tab PO DAILY Oxcarbazepine 150 Mg Tablet 150 Mg PO QHS Invega (Paliperidone) 6 Mg Tab.er.24 1 Tab PO DAILY Abdiaziz Disclaimer This chart was dictated in whole or in part using Voice Recognition software in a busy, high-work load, and often noisy Emergency Department environment. It may contain unintended and wholly unrecognized errors or omissions. KARYN WING MD Nov 14, 2018 06:24
--- NOTE | 2018-11-14 17:46 | EKG ---
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
--- NOTE | 2018-11-15 14:45 | RAD ---
EXAM: Chest, 2 views. HISTORY: Cough and fever. COMPARISON: 03/26/2018 FINDINGS: 2 views of the chest are obtained. There is no infiltrate, pleural effusion or pneumothorax. The heart is normal in size. IMPRESSION: No acute pulmonary finding. Electronically signed by: Kathy Chino MD (11/15/2018 2:42 PM) [id number]
== END 2018-11-14 03:30 | disposition home or self-care (01) ==
LOC: ER 00:22
DX: J45.901 Unspecified asthma with (acute) exacerbation (principal); J18.9 Pneumonia, unspecified organism; J44.9 Chronic obstructive pulmonary disease, unspecified; F20.9 Schizophrenia, unspecified; F17.210 Nicotine dependence, cigarettes, uncomplicated; Z88.0 Allergy status to penicillin; Z88.8 Allergy status to other drugs, medicaments and biological substances
CPT/HCPCS: 36415; 71046; 82550; 84484; 87070; 87804; 87880; 93005; 99284; J0456; J7512; J7613

== ENCOUNTER 2019-05-06 14:05 | Emergency (ER) | payer OTHER ==
[~2019-05-06] VITALS: Ht 170.2 cm; Wt 83.0 kg
[2019-05-06 14:34] VITALS: BP 132/69
[2019-05-06] MEDS ORDERED: CLIN150C14 PO (14:47)
[2019-05-06] MEDS ORDERED: CIPR500T94 PO (14:48)
--- NOTE | 2019-05-06 14:48 | PHYS DOC ---
Past History Past Medical History: Bronchitis, COPD, Pneumonia, Schizophrenia Past Surgical History: Other Smoking: Cigarettes Alcohol Use: Occasionally Drug Use: None Adult General Chief Complaint Chief Complaint: LOWER EXT PAIN HPI HPI Patient is a 43-year-old male presents with bilateral leg redness that started yesterday. Patient is approximately 2 weeks post dog bite of his right calf. Does not recall being on any antibiotics for the dog bite. Denies any fever. Denies any itching. Denies any subsequent trauma. Denies any new soaps, lotions, detergents, skin creams. Denies any difficulty breathing.[] Review of Systems Review of Systems Constitutional: Denies fever or chills [] Eyes: Denies change in visual acuity, redness, or eye pain [] HENT: Denies nasal congestion or sore throat [] Respiratory: Denies cough or shortness of breath [] Cardiovascular: No chest pain or palpitations[] GI: Denies abdominal pain, nausea, vomiting, bloody stools or diarrhea [] : Denies dysuria or hematuria [] Musculoskeletal: Denies back pain or joint pain [] Integument: See history of present illness[] Neurologic: Denies headache, focal weakness or sensory changes [] Endocrine: Denies polyuria or polydipsia [] All other systems were reviewed and found to be within normal limits, except as documented in this note. Allergies Allergies Allergies Coded Allergies Type Severity Reaction Last Updated Verified Penicillins Allergy Intermediate 09/11/17 Yes brexpiprazole Allergy Intermediate 09/11/17 Yes oxcarbazepine Allergy Intermediate 09/11/17 Yes paliperidone Allergy Intermediate 09/11/17 Yes risperidone Allergy Intermediate seizure 09/11/17 Yes ziprasidone Allergy Intermediate seizure 09/11/17 Yes Physical Exam Physical Exam Constitutional: Well developed, well nourished, no acute distress, non-toxic appearance. [] HENT: Normocephalic, atraumatic, bilateral external ears normal, oropharynx moist, no oral exudates, nose normal. [] Eyes: PERRLA, EOMI, conjunctiva normal, no discharge. [] Neck: Normal range of motion, no tenderness, supple, no stridor. [] Cardiovascular:Heart rate regular rhythm, no murmur [] Lungs & Thorax: Bilateral breath sounds clear to auscultation [] Abdomen: Bowel sounds normal, soft, no tenderness, no masses, no pulsatile masses. [] Skin: Warm, dry, no erythema, no rash. [] Back: No tenderness, no CVA tenderness. [] Extremities: Bilateral lower extremities have a diffuse erythema in the calf region. There is no Homans sign. This rash blanches. There are no petechiae. The right calf reported dog bite is proximally 1 cm x 0.5 cm in size largest dimension transverse. There is no purulent drainage from this. No inguinal lymphadenopathy. Bilateral upper extremities show: No tenderness, no cyanosis, no clubbing, ROM intact, no edema. [] Neurologic: Alert and oriented X 3, normal motor function, normal sensory function, no focal deficits noted. [] Psychologic: Affect normal, judgement normal, mood normal. [] EKG EKG [] Radiology/Procedures Radiology/Procedures [] Course & Med Decision Making Course & Med Decision Making Pertinent Labs and Imaging studies reviewed. (See chart for details) Medical decision making and ED course: Believe this to be a cellulitis, uncertain as to whether this is from the dog bite but we'll cover for that. No evidence of an abscess. No evidence of systemic toxicity. Patient counseled about smoking. Findings were discussed with the patient voiced understanding. All questions were answered. He was discharged in improved condition.[] Dragon Disclaimer Dragon Disclaimer This electronic medical record was generated, in whole or in part, using a voice recognition dictation system. Departure Departure: Impression: Primary Impression: Cellulitis Disposition: 01 HOME, SELF-CARE Condition: IMPROVED Referrals: ALESSANDRO PHELPS MD (PCP) Follow-up in 2 days Patient Instructions: Cellulitis Additional Instructions: Follow-up with your regular doctor in 2 days. Stop smoking! Apply warm compresses at least 4 times a day for 15 minutes at a time to your lower extremities were the rash is located. Take the medication as prescribed. Return to the ER if worsening pain, fever of more than 101�, or any other concerns. Scripts Ciprofloxacin Hcl (CIPRO) 500 Mg Tablet 1 TAB PO BID for dog bite/cellulitis, #20 TAB Prov: GILMAR GUPTA DO 05/06/19 Clindamycin Hcl (CLINDAMYCIN HCL) 150 Mg Capsule 2 CAP PO QID for cellulitis, #80 CAP Prov: GILMAR GUPTA DO 05/06/19 Problem Qualifiers Primary Impression: Cellulitis Site of cellulitis: extremity Site of cellulitis of extremity: lower extre mity Laterality: unspecified laterality Qualified Codes: L03.119 - Cellulitis of unspecified part of limb GILMAR GUPTA DO May 06, 2019 14:48
[2019-05-06] MEDS ORDERED: DIPHTH,PERTUSS(ACELL),TET TOX 0.5 ML DISP.SYRIN. VAX IM ONE (15:00)
== END 2019-05-06 15:11 | disposition home or self-care (01) ==
LOC: ER 14:05
DX: S81.851A Open bite, right lower leg, initial encounter (principal); L03.116 Cellulitis of left lower limb; L03.115 Cellulitis of right lower limb; J44.9 Chronic obstructive pulmonary disease, unspecified; F20.9 Schizophrenia, unspecified; F17.210 Nicotine dependence, cigarettes, uncomplicated; Z88.0 Allergy status to penicillin; Z88.8 Allergy status to other drugs, medicaments and biological substances; W54.0XXA Bitten by dog, initial encounter; Y93.89 Activity, other specified; Y92.89 Other specified places as the place of occurrence of the external cause; Y99.8 Other external cause status
CPT/HCPCS: 90471; 90715; 99283-25

== ENCOUNTER → 2020-03-12 | Outpatient (CLI) | payer MEDICARE ==
[~2020-03-12] MED LIST changes: +CIPR500T94 PO; +CLIN150C14 PO
--- NOTE | 2020-03-13 08:04 | EKG ---
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
== END | disposition home or self-care (01) ==
LOC: EKG 15:36
PROVIDERS: ATTEND Nurse Practitioner Adult Health
DX: R07.89 Other chest pain (principal)
CPT/HCPCS: 93005

== ENCOUNTER 2021-02-27 23:09 | Emergency (ER) | payer MEDICARE ==
[~2021-02-27] VITALS: Ht 170.2 cm; Wt 84.5 kg
[~2021-02-27 23:09] MED LIST changes: -CLIN150C14 PO; +CLIN150C15 PO; -CLIN300C8 PO; +CLIN300C9 PO
--- NOTE | 2021-02-27 23:22 | PHYS DOC ---
Past History Past Medical History: Bronchitis, COPD, Pneumonia, Schizophrenia Past Surgical History: Other Smoking: Cigarettes Alcohol Use: Occasionally Drug Use: None General Adult HPI: HPI: ".. I was drinking too much today.. more than 7 beers.. and I did not take my psych meds..." Patient is a 45 year old male who presents with above hx and complaints of alcohol abuse and hallucinations. Patient did not take his psych meds today or yesterday because he was drinking heavily. Patient states when he does not take his meds he has delusions and hallucinations. Patient has past history of alco hol abuse. Patient denies any illicit drug. No recent travel. No specific ill contacts. No history immunosuppression. Patient has a history of COPD, bronchitis, asthma, alcohol abuse, schizoaffective disorder, paranoid delusions, DVTs, and anxiety. Patient normally follows with Dr. Phelps. Review of Systems: Review of Systems: Constitutional: Denies fever or chills Eyes: Denies change in visual acuity HENT: Denies nasal congestion or sore throat Respiratory: Denies cough or shortness of breath Cardiovascular: Denies chest pain or edema GI: Denies abdominal pain, nausea, vomiting, bloody stools or diarrhea : Denies dysuria Musculoskeletal: Denies back pain or joint pain Integument: Denies rash Neurologic: Denies headache, focal weakness or sensory changes Endocrine: Denies polyuria or polydipsia Lymphatic: Denies swollen glands Psychiatric: Complaints anxiety and hallucinations Family History: Family History: Noncontributory to presentation. Father had diabetes Current Medications: Current Meds: See nursing for home meds Allergies: Allergies: Allergies Coded Allergies Type Severity Reaction Last Updated Verified Penicillins Allergy Intermediate 09/11/17 Yes brexpiprazole Allergy Intermediate 09/11/17 Yes oxcarbazepine Allergy Intermediate 09/11/17 Yes paliperidone Allergy Intermediate 09/11/17 Yes risperidone Allergy Intermediate seizure 09/11/17 Yes ziprasidone Allergy Intermediate seizure 09/11/17 Yes Physical Exam: PE: Constitutional: no acute distress, intoxicated and appearance. [] HENT: Normocephalic, atraumatic, bilateral external ears normal, oropharynx m oist, no oral exudates, nose normal. [] Eyes: PERRLA, EOMI, conjunctiva injected, no discharge. [] Neck: Normal range of motion, no tenderness, supple, no stridor. [] Cardiovascular:Heart rate regular rhythm, no murmur [] Lungs & Thorax: Bilateral breath sounds to apex with scattered wheezes on a uscultation [] . The patient bilateral basilar crackles more on right than left Abdomen: Bowel sounds normal, soft, no tenderness, no masses, no pulsatile masses. [] Skin: Warm, dry, no erythema, no rash. [] Back: No tenderness, no CVA tenderness. [] Extremities: No tenderness, no cyanosis, no clubbing, ROM intact, no edema. [] No cording appreciated Neurologic: Alert and oriented X 3, normal motor function, normal sensory function, no focal deficits noted. [] Mild discoordination. Discoordination cleared with observation and IV fluids. Patient amatory via problems at time of discharge Psychologic: Affect normal, judgement mild impairment-intoxicated, mood normal. [] EKG: EKG: My interpretation of EKG shows sinus rhythm at 83 bpm [] Radiology/Procedures: Radiology/Procedures: [][address] [place] [id number] IMAGING REPORT Signed PATIENT: MAYANK WILKES ACCOUNT: [id number] : 1975 LOCATION: ER AGE: 45 SEX: M EXAM STATUS: PRE ER ORD. PHYSICIAN: KARYN WING MD REASON: tachy PROCEDURE: PORTABLE CHEST 1V XR CHEST 1V Clinical History: Reason: tachy / Spl. Instructions: / History: Technique: AP view of the chest was obtained at 02/27/2021 11:54 PM. Comparison: November 14, 2018. Findings: The cardiomediastinal silhouette is normal. The pulmonary vasculature is normal. There is blunting of costophrenic angles right worse than left. Hazy opacity in the lower lateral right lung is likely fluid in the minor fissure. Impression: Mild pleural effusions right worse than left. Electronically signed by: Ophelia Malik III, MD (02/28/2021 12:24 AM) [facility] DICTATED AND SIGNED BY: OPHELIA MALIK III, MD DATE: 02/28/2121 CC: ALESSANDRO PHELPS MD; KARYN WING MD ~MTH0 0 Heart Score: C/O Chest Pain: N/A HEART Score for Chest Pain: HEART Score for Chest Pain Response (Comments) Value History Slighlty/Non-Suspicious 0 ECG Normal 0 Age >45 - < 65 1 Risk Factors 1 or 2 Risk Factors 1 Troponin < Normal Limit 0 Total 2 Risk Factors: Risk Factors: DM, Current or recent (<one month) smoker, HTN, HLP, family history of CAD, obesity. Risk Scores: Score 0 - 3: 2.5% MACE over next 6 weeks - Discharge Home Score 4 - 6: 20.3% MACE over next 6 weeks - Admit for Clinical Observation Score 7 - 10: 72.7% MACE over next 6 weeks - Early Invasive Strategies Course & Med Decision Making: Course & Med Decision Making Pertinent Labs and Imaging studies reviewed. (See chart for details) Patient encouraged to avoid excessive alcohol use. Patient take his psych meds as directed. Patient push fruit juices. Patient follow-up with primary care. Patient return if any concerns. Have primary review ED record. Return if any concerns. Follow up pleural effusions. Impression: 1. Alcohol abuse 2. Schizoaffective disorder 3. Noncompliance with psych meds 4. Mild thrombocytopenia 132 5. Hypokalemia 2.9 6. Tobacco use 7. Pleural Effusions. [] Dragon Disclaimer: Dragon Disclaimer: This electronic medical record was generated, in whole or in part, using a voice recognition dictation system. Departure Departure: Referrals: ALESSANDRO PHELPS MD (PCP) Dragon Disclaimer This chart was dictated in whole or in part using Voice Recognition software in a busy, high-work load, and often noisy Emergency Department environment. It may contain unintended and wholly unrecognized errors or omissions. KARYN WING MD February 27, 2021 23:22
[2021-02-27] MEDS ORDERED: FOLIC ACID 1 MG TABLET PO ONE (23:45)
[2021-02-27] MEDS ORDERED: MVI, ADULT NO.4 WITH VIT K 10 ML, THIAMINE INJ 100 MG in IV RINGERS SOLUTION,LACTATED 1... IV ONE (23:45)
[2021-02-27] MEDS ORDERED: IV RINGERS SOLUTION,LACTATED 1,000 ML IV SCH (23:45)
[2021-02-27] MEDS ORDERED: THIAMINE 200 MG/2 ML VIAL. IV ONE (23:50)
[2021-02-27] MEDS ORDERED: MVI, ADULT NO.4 WITH VIT K 10 ML VIAL IV ONE (23:51)
--- NOTE | 2021-02-28 00:27 | RAD ---
XR CHEST 1V Clinical History: Reason: tachy / Spl. Instructions: / History: Technique: AP view of the chest was obtained at 02/27/2021 11:54 PM. Comparison: November 14, 2018. Findings: The cardiomediastinal silhouette is normal. The pulmonary vasculature is normal. There is blunting of costophrenic angles right worse than left. Hazy opacity in the lower lateral right lung is likely fl uid in the minor fissure. Impression: Mild pleural effusions right worse than left. Electronically signed by: Partice Madsen III, MD (02/28/2021 12:24 AM) [facility]
[2021-02-28 01:33] LABS: ALBUMIN 3.5 g/dL (3.4-5.0); CALCIUM 8.8 mg/dL (8.5-10.1); DIRECT BILIRUBIN 0.1 mg/dL (0.0-0.2); GFR 80.1; MAGNESIUM 2.1 mg/dL (1.8-2.4); TOTAL BILIRUBIN 0.2 mg/dL (0.2-1.0); TOTAL PROTEIN 7.2 g/dL (6.4-8.2)
[2021-02-28 01:38] LABS: BARBITURATES NEG (NEG); BENZODIAZEPINES NEG (NEG); CANNABINOIDS NEG (NEG); COCAINE NEG (NEG); METHADONE NEG (NEG); OPIATES NEG (NEG); PHENCYCLIDINE NEG (NEG)
[2021-02-28 01:56] LABS: CLARITY,URINE CLEAR; COLOR,URINE STRAW
[2021-02-28 01:57] LABS: AMORPHOUS SEDIMENT,UR PRESENT /HPF; BACTERIA,URINE FEW /HPF (0-FEW); BILIRUBIN,URINE NEG (NEG); GLUCOSE,URINE NEG (NEG); NITRITE,URINE NEG (NEG); RBC,URINE 0 /HPF (0-2); SQUAMOUS EPITHELIAL CELL,UR OCC /LPF; UROBILINOGEN,URINE 0.2 mg/dL (0.2 mg/dL); WBC,URINE 0 /HPF (0-4)
[2021-02-28 02:02] LABS: BASO # 0.1 x10^3/uL (0.0-0.2); BASO % 1 % (0-3); EOS # 0.2 x10^3/uL (0.0-0.7); EOS % 2 % (0-3); HEMATOCRIT 46.1 % (39.0-53.0); HEMOGLOBIN 15.6 g/dL (13.0-17.5); LYMPH # 2.6 x10^3/uL (1.0-4.8); LYMPH % 24 % (24-48); MEAN CORPUSCULAR HEMOGLOBIN 31 pg (25-35); MEAN CORPUSCULAR HGB CONC 34 g/dL (31-37); MEAN CORPUSCULAR VOLUME 92 fL (79-100); MONO # 0.9 x10^3/uL (0.0-1.1); MONO % 8 % (0-9); NEUT # 7.2 x10^3uL (1.8-7.7); NEUT % 65 % (31-73); PLATELET COUNT 132 x10^3/uL (140-400); RED CELL DISTRIBUTION WIDTH 14.4 % (11.5-14.5); WHITE BLOOD COUNT 11.1 x10^3/uL (4.0-11.0)
[2021-02-28 02:13] LABS: POTASSIUM 2.9 mmol/L (3.5-5.1)
[2021-02-28 02:14] LABS: AMPHETAMINE/METHAMPHETAMINE NEG (NEG)
[2021-02-28] MEDS ORDERED: POTASSIUM CHLORIDE 20 MEQ TABLET.ER. PO ONE (02:30)
--- NOTE | 2021-02-28 02:49 | EKG ---
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
[2021-02-28 02:51] VITALS: BP 134/76
== END 2021-02-28 02:52 | disposition home or self-care (01) ==
LOC: ER 23:09
DX: F10.10 Alcohol abuse, uncomplicated (principal); F25.9 Schizoaffective disorder, unspecified; D69.6 Thrombocytopenia, unspecified; E87.6 Hypokalemia; J44.9 Chronic obstructive pulmonary disease, unspecified; F17.210 Nicotine dependence, cigarettes, uncomplicated; J90 Pleural effusion, not elsewhere classified; Z91.14 Patient's other noncompliance with medication regimen; Z88.0 Allergy status to penicillin; Z88.6 Allergy status to analgesic agent
CPT/HCPCS: 36415; 71045; 80048; 80076; 80307; 81001; 82550; 83690; 83735; 83880; 84443; 84484; 85025; 93005; 96365; 96366; 99285; G0480; J7120

== ENCOUNTER 2021-04-19 00:30 | Emergency (ER) | payer MEDICARE, OTHER ==
[~2021-04-19] VITALS: Ht 172.7 cm; Wt 85.1 kg
[~2021-04-19 00:30] MED LIST changes: +OLAN10TA69 PO; -OLAN10TA9 PO
[2021-04-19 01:15] LABS: BASO # 0.3 x10^3/uL (0.0-0.2); BASO % 3 % (0-3); CALCIUM 8.1 mg/dL (8.5-10.1); CREATININE 0.9 mg/dL (0.7-1.3); EOS # 0.1 x10^3/uL (0.0-0.7); EOS % 1 % (0-3); GFR 90.4; HEMATOCRIT 43.6 % (39.0-53.0); HEMOGLOBIN 15.3 g/dL (13.0-17.5); LYMPH # 1.7 x10^3/uL (1.0-4.8); LYMPH % 16 % (24-48); MEAN CORPUSCULAR HEMOGLOBIN 32 pg (25-35); MEAN CORPUSCULAR HGB CONC 35 g/dL (31-37); MEAN CORPUSCULAR VOLUME 90 fL (79-100); MONO # 0.7 x10^3/uL (0.0-1.1); MONO % 7 % (0-9); NEUT # 7.5 x10^3uL (1.8-7.7); NEUT % 73 % (31-73); PLATELET COUNT 155 x10^3/uL (140-400); RED BLOOD COUNT 4.86 x10^6/uL (4.30-5.70); WHITE BLOOD COUNT 10.2 x10^3/uL (4.0-11.0)
[2021-04-19 01:20] LABS: ALBUMIN 3.5 g/dL (3.4-5.0); ALBUMIN/GLOBULIN RATIO 1.1 (1.0-1.7); TOTAL BILIRUBIN 0.2 mg/dL (0.2-1.0); TOTAL PROTEIN 6.7 g/dL (6.4-8.2)
[2021-04-19 01:25] LABS: BACTERIA,URINE FEW /HPF (0-FEW); BILIRUBIN,URINE NEG (NEG); CLARITY,URINE CLEAR; COLOR,URINE COLORLESS; GLUCOSE,URINE NEG (NEG); NITRITE,URINE NEG (NEG); RBC,URINE 0 /HPF (0-2); SQUAMOUS EPITHELIAL CELL,UR OCC /LPF; UROBILINOGEN,URINE 0.2 mg/dL (0.2 mg/dL); WBC,URINE 0 /HPF (0-4)
[2021-04-19 01:26] LABS: SPERM,URINE PRESENT /HPF
[2021-04-19] MEDS ORDERED: IV RINGERS SOLUTION,LACTATED 1,000 ML IV ONE (01:30)
--- NOTE | 2021-04-19 03:35 | PHYS DOC ---
Past History Past Medical History: Bronchitis, COPD, Depression, Pneumonia, Schizophrenia Past Surgical History: Other Additional Past Surgical Histo: RIGHT FOOT, NOSE SX Smoking: Cigarettes Alcohol Use: None Drug Use: None Adult General Chief Complaint Chief Complaint: CONSTIPATION HPI HPI Patient is a 45-year-old male with a past medical history significant for schizoaffective disorder, COPD who presents to the emergency department with a chief complaint of constipation. States that over the last couple of days he has had decreased bowel output where he usually goes to the bathroom every morning. States he did have a small bowel movement earlier in the morning that seems softer than usual. States he has been eating and drinking normally for him. States he is making urine normally for him. Denies any recent travel, traumas, illnesses, fevers, Covid/flu/cold symptoms, chest pain, shortness of breath, abdominal pain, nausea, vomiting, dysuria, hematuria or blood in the stool. Denies any drug use but does endorse tobacco use and binge drinking on the weekends. States he did have a bunch of beers earlier in the day. Review of Systems Review of Systems Review of systems otherwise unremarkable except noted in HPI Current Medications Current Medications Current Medications Medications (Trade) Dose Ordered Sig/Linn Start Time Stop Time Status Last Admin Dose Admin Fentanyl Citrate (Fentanyl 2ml Vial) 75 mcg 1X ONCE 04/19/21 01:30 04/19/21 01:31 DC 04/19/21 01:42 75 MCG Lactated Ringer's 1,000 ml @ 1,000 mls/hr 1X ONCE 04/19/21 01:30 04/19/21 02:29 DC 04/19/21 01:13 1,000 MLS/HR Allergies Allergies Allergies Coded Allergies Type Severity Reaction Last Updated Verified Penicillins Allergy Intermediate 09/11/17 Yes brexpiprazole Allergy Intermediate 09/11/17 Yes oxcarbazepine Allergy Intermediate 09/11/17 Yes paliperidone Allergy Intermediate 09/11/17 Yes risperidone Allergy Intermediate seizure 09/11/17 Yes ziprasidone Allergy Intermediate seizure 09/11/17 Yes Physical Exam Physical Exam Constitutional: Well developed, well nourished, no acute distress, non-toxic appearance. [] HENT: Normocephalic, atraumatic, oropharynx moist, no oral exudates, Eyes: conjunctiva normal, no discharge. [] Neck: Normal range of motion, no tenderness, supple, no stridor. [] Cardiovascular:Heart rate regular rhythm, no murmur [] Lungs & Thorax: Bilateral breath sounds clear to auscultation [] Abdomen: Bowel sounds normal, soft, no tenderness, no masses, no pulsatile masses. [] Skin: Warm, dry, no erythema, no rash. [] Back: no CVA tenderness. [] Extremities: No tenderness, ROM intact, no edema. [] Neurologic: Alert and oriented X 3, normal motor function, normal sensory function, able to sit, stand and walk without issue no focal deficits noted. [] Psychologic: Affect normal, judgement normal, mood normal. [] Current Patient Data Vital Signs Vital Signs Date Time Temp Pulse Resp B/P (MAP) Pulse Ox O2 Delivery O2 Flow Rate FiO2 04/19/21 01:42 18 100 Room Air Lab Results Laboratory Tests Test 04/19/21 00:38 04/19/21 00:45 Urine Collection Type Unknown Urine Color Colorless Urine Clarity Clear Urine pH 5.5 Urine Specific [place] <=1.005 Urine Protein Neg (NEG-TRACE) Urine Glucose (UA) Neg mg/dL (NEG) Urine Ketones (Stick) Neg mg/dL (NEG) Urine Blood Neg (NEG) Urine Nitrite Neg (NEG) Urine Bilirubin Neg (NEG) Urine Urobilinogen Dipstick 0.2 mg/dL (0.2 mg/dL) Urine Leukocyte Esterase Neg (NEG) Urine RBC 0 /HPF (0-2) Urine WBC 0 /HPF (0-4) Urine Squamous Epithelial Cells Occ /LPF Urine Bacteria Few /HPF (0-FEW) Urine Sperm Present /HPF White Blood Count 10.2 x10^3/uL (4.0-11.0) Red Blood Count 4.86 x10^6/uL (4.30-5.70) Hemoglobin 15.3 g/dL (13.0-17.5) Hematocrit 43.6 % (39.0-53.0) Mean Corpuscular Volume 90 fL (79-100) Mean Corpuscular Hemoglobin 32 pg (25-35) Mean Corpuscular Hemoglobin Concent 35 g/dL (31-37) Red Cell Distribution Width 14.0 % (11.5-14.5) Platelet Count 155 x10^3/uL (140-400) Neutrophils (%) (Auto) 73 % (31-73) Lymphocytes (%) (Auto) 16 % (24-48) L Monocytes (%) (Auto) 7 % (0-9) Eosinophils (%) (Auto) 1 % (0-3) Basophils (%) (Auto) 3 % (0-3) Neutrophils # (Auto) 7.5 x10^3uL (1.8-7.7) Lymphocytes # (Auto) 1.7 x10^3/uL (1.0-4.8) Monocytes # (Auto) 0.7 x10^3/uL (0.0-1.1) Eosinophils # (Auto) 0.1 x10^3/uL (0.0-0.7) Basophils # (Auto) 0.3 x10^3/uL (0.0-0.2) H Sodium Level 136 mmol/L (136-145) Potassium Level 3.0 mmol/L (3.5-5.1) L Chloride Level 102 mmol/L (98-107) Carbon Dioxide Level 21 mmol/L (21-32) Anion Gap 13 (6-14) Blood Urea Nitrogen 7 mg/dL (8-26) L Creatinine 0.9 mg/dL (0.7-1.3) Estimated GFR (Cockcroft-Gault) 90.4 BUN/Creatinine Ratio 8 (6-20) Glucose Level 116 mg/dL (70-99) H Calcium Level 8.1 mg/dL (8.5-10.1) L Total Bilirubin 0.2 mg/dL (0.2-1.0) Aspartate Amino Transferase (AST) 15 U/L (15-37) Alanine Aminotransferase (ALT) 21 U/L (16-63) Alkaline Phosphatase 91 U/L (46-116) Total Protein 6.7 g/dL (6.4-8.2) Albumin 3.5 g/dL (3.4-5.0) Albumin/Globulin Ratio 1.1 (1.0-1.7) Lipase 99 U/L (73-393) EKG EKG [] Radiology/Procedures Radiology/Procedures [] XR ABDOMEN COMP ACUTE INDICATION: Reason: upper abdominal pain / Spl. Instructions: / History: . COMPARISON STUDY: None. FINDINGS: Lungs: Normal lung volume. No pulmonary mass or consolidation. The tr acheobronchial tree and hilar structures are normal. Pleura: No pleural effusion or pneumothorax. Heart and Mediastinum: Cardiomegaly. The great vessels of the thorax are normal. Abdomen: Nonobstructive bowel gas pattern. No free air. IMPRESSION: 1. Nonobstructive bowel gas pattern. 2. No consolidation. Electronically signed by: Crow Donis MD (04/19/2021 3:39 AM) [facility] Heart Score C/O Chest Pain: No Risk Factors: Risk Factors: DM, Current or recent (<one month) smoker, HTN, HLP, family history of CAD, obesity. Risk Scores: Risk Factors: DM, Current or recent (<one month) smoker, HTN, HLP, family history of CAD, obesity. Course & Med Decision Making Course & Med Decision Making Patient is a 45-year-old male who presents with a chief complaint of abdominal cramping and constipation over the last couple of days with a episode of soft nonbloody stool Vital signs not concerning. Physical exam noted above. Given a single dose of pain medicine in the emergency department. Given IV fluid resuscitation. Laboratory analysis not concerning. Patient able to take p.o. in the ED without issue. On reassessment patient stated that symptoms had completely resolved while here in the emergency department. Imaging with nonspecific bowel gas pattern with no obvious obstru ction. Normal lung volume with no obvious consolidation. Discussed all findings with family and advised to follow-up with primary care physician first thing Tuesday morning. Advised to light diet over the next few days including lots of fluids. Gave strict return precautions to the ED. Family grateful, verbalized understanding and agreed with plan of discharge. Dragon Disclaimer Dragon Disclaimer This electronic medical record was generated, in whole or in part, using a voice recognition dictation system. Departure Departure: Impression: Primary Impression: Constipation Disposition: HOME / SELF CARE / HOMELESS Condition: GOOD Referrals: ALESSANDRO PHELPS MD (PCP) Patient Instructions: Constipation, Adult Additional Instructions: Thank you for coming into the emergency department tonight and allowing us to take care of you. Please read all the attached information very carefully to go back over what we discussed. Over the next couple of days please eat a light clear diet as discussed. Please drink plenty of fluids. You can use an hvgy-rye-doetndt stool softener such as MiraLAX to help with bowel movements, but do not use more than a couple of days in a row. Please call your primary care physician first thing Tuesday morning to update on your ED visit and set up a follow-up appointment as soon as you can. Please come back to the emergency department immediately with new or concerning symptoms as discussed. JESUS POPE MD Apr 19, 2021 03:35
[2021-04-19 03:41] VITALS: BP 126/70
--- NOTE | 2021-04-19 03:41 | RAD ---
XR ABDOMEN COMP ACUTE INDICATION: Reason: upper abdominal pain / Spl. Instructions: / History: . COMPARISON STUDY: None. FINDINGS: Lungs: Normal lung volume. No pulmonary mass or consolidation. The tracheobronchial tree and hilar st ructures are normal. Pleura: No pleural effusion or pneumothorax. Heart and Mediastinum: Cardiomegaly. The great vessels of the thorax are normal. Abdomen: Nonobstructive bowel gas pattern. No free air. IMPRESSION: 1. Nonobstructive bowel gas pattern. 2. No consolidation. Electronically signed by: Crow Donis MD (04/19/2021 3:39 AM) [facility]
== END 2021-04-19 03:55 | disposition home or self-care (01) ==
LOC: ER 00:30
DX: K59.00 Constipation, unspecified (principal); J44.9 Chronic obstructive pulmonary disease, unspecified; F32.9 Major depressive disorder, single episode, unspecified; F20.9 Schizophrenia, unspecified; F17.210 Nicotine dependence, cigarettes, uncomplicated; Z88.0 Allergy status to penicillin; Z88.8 Allergy status to other drugs, medicaments and biological substances
CPT/HCPCS: 36415; 74022; 80053; 81001; 83690; 85025; 96374; 99285; J3010; J7120

== ENCOUNTER 2021-04-30 15:15 | Emergency (ER) | payer MEDICARE ==
[~2021-04-30] VITALS: Ht 172.7 cm; Wt 80.0 kg
[2021-04-30 15:34] VITALS: BP 128/71
[2021-04-30] MEDS ORDERED: ALBUTEROL SULFATE 2.5 MG/3 ML NEBU. CONT NEB ONE (15:45)
--- NOTE | 2021-04-30 15:49 | RAD ---
EXAM: Chest, single view. HISTORY: Cough. COMPARISON: 02/27/2021 FINDINGS: A frontal view of the chest is obtained. There is stable blunting of the costophrenic angle s likely due to trace pleural effusions. The heart is normal in size. There is no pneumothorax. IMPRESSION: Stable suspected trace pleural effusions. Electronically signed by: Kathy Chino MD (04/30/2021 3:47 PM) [id number]
--- NOTE | 2021-04-30 15:53 | PHYS DOC ---
Past History Past Medical History: Bronchitis, COPD, Depression, Pneumonia, Schizophrenia Past Surgical History: No Surgical History Additional Past Surgical Histo: RIGHT FOOT, NOSE SX Smoking: Cigarettes Alcohol Use: Occasionally Drug Use: None General Adult EDM: Chief Complaint: COUGH HPI: HPI: 45-year-old male presents with 3-day history of cough, shortness of breath, body aches, and chest pressure. The patient has COPD at baseline. He uses intermittent albuterol. He went to his primary care physician today who gave him a shot of steroids, prescribe more steroids, and gave the patient 2 DuoNeb treatments. The patient tells me he took 4 different inhalers at home without relief. Now he is here. The patient is not vaccinated for COVID-19. He does not believe he has had a fever. Review of Systems: Review of Systems: Constitutional: Denies fever or chills. Body aches, fatigue. Eyes: Denies change in visual acuity HENT: Denies nasal congestion or sore throat Respiratory: Cough with shortness of breath Cardiovascular: Denies chest pain or edema GI: Denies abdominal pain, nausea, vomiting, bloody stools or diarrhea : Denies dysuria Musculoskeletal: Denies back pain or joint pain Integument: Denies rash Neurologic: Denies headache, focal weakness or sensory changes Endocrine: Denies polyuria or polydipsia Lymphatic: Denies swollen glands Psychiatric: Denies depression or anxiety Allergies: Allergies: Allergies Coded Allergies Type Severity Reaction Last Updated Verified Penicillins Allergy Intermediate 04/30/21 Yes brexpiprazole Allergy Intermediate 04/30/21 Yes oxcarbazepine Allergy Intermediate 04/30/21 Yes paliperidone Allergy Intermediate 04/30/21 Yes risperidone Allergy Intermediate seizure 04/30/21 Yes ziprasidone Allergy Intermediate seizure 04/30/21 Yes Physical Exam: PE: Constitutional: Well developed, well nourished, no acute distress, non-toxic appearance. [] HENT: Normocephalic, atraumatic, bilateral external ears normal, oropharynx moist, no oral exudates, nose normal. [] Eyes: PERRLA, EOMI, conjunctiva normal, no discharge. [] Neck: Normal range of motion, no tenderness, supple, no stridor. [] Cardiovascular: Heart rate regular rhythm, no murmur [] Lungs & Thorax: Bilateral expiratory crackles [] Abdomen: Bowel sounds normal, soft, no tenderness, no masses, no pulsatile masses. [] Skin: Warm, dry, no erythema, no rash. [] Back: No tenderness, no CVA tenderness. [] Extremities: No tenderness, no cyanosis, no clubbing, ROM intact, no edema. [] Neurologic: Alert and oriented X 3, normal motor function, normal sensory function, no focal deficits noted. [] Psychologic: Affect normal, judgement normal, mood normal. [] Current Patient Data: Vital Signs: Vital Signs Date Time Temp Pulse Resp B/P (MAP) Pulse Ox O2 Delivery O2 Flow Rate FiO2 04/30/21 15:34 100.9 101 20 128/71 97 Room Air EKG: EKG: Sinus rhythm, rate 92, normal axis, no ST elevation or depression, prolonged QT. [] Radiology/Procedures: Radiology/Procedures: [] Impressions: EXAM: Chest, single view. HISTORY: Cough. COMPARISON: 02/27/2021 FINDINGS: A frontal view of the chest is obtained. There is stable blunting of the costophrenic angles likely due to trace pleural effusions. The heart is normal in size. There is no pneumothorax. IMPRESSION: Stable suspected trace pleural effusions. Electronically signed by: Kathy Chino MD (04/30/2021 3:47 PM) [id number] DICTATED AND SIGNED BY: KATHY CHINO MD DATE: 04/30/21 1546 CC: PHILL TSANG DO; ALESSANDRO PHELPS MD ~MTH0 0 Heart Score: C/O Chest Pain: Yes HEART Score for Chest Pain: HEART Score for Chest Pain Response (Comments) Value History Slighlty/Non-Suspicious 0 ECG Normal 0 Age >45 - < 65 1 Risk Factors 1 or 2 Risk Factors 1 Troponin < Normal Limit 0 Total 2 Risk Factors: Risk Factors: DM, Current or recent (<one month) smoker, HTN, HLP, family history of CAD, obesity. Risk Scores: Score 0 - 3: 2.5% MACE over next 6 weeks - Discharge Home Score 4 - 6: 20.3% MACE over next 6 weeks - Admit for Clinical Observation Score 7 - 10: 72.7% MACE over next 6 weeks - Early Invasive Strategies Course & Med Decision Making: Course & Med Decision Making Pertinent Labs and Imaging studies reviewed. (See chart for details) The patient oxygen saturation is 96% on room air. I have ordered a 1 hour albuterol treatment. His chest x-ray is negative for significant acute findings. The patient's potassium is 2.9. I have ordered 40 mEq of potassium chloride p.o. The patient is highly likely have COVID-19. He is already being treated for COPD exacerbation with steroids. He does not meet admission criteria. I have explained to the patient that while he feels short of breath, he is getting adequate oxygenation. He is stable for discharge at this time. If his condition worsens significantly, he will return to the emergency room. [] Dragon Disclaimer: Dragon Disclaimer: This electronic medical record was generated, in whole or in part, using a voice recognition dictation system. Departure Departure: Impression: Primary Impression: COVID Additional Impression: Hypokalemia Disposition: HOME / SELF CARE / HOMELESS Condition: STABLE Referrals: ALESSANDRO PHELPS MD (PCP) Additional Instructions: You have been tested for or diagnosed with COVID-19. It is an infection caused by a new type of coronavirus. COVID-19 will cause cold-like or mild flu symptoms in most. It can cause more severe symptoms like problems breathing in some. There is no treatment for COVID-19. The body will clear the infection over time. Self-care will help to ease discomfort. Steps to Take: Self-Care Rest as needed. Healthy habits may help you feel better. Steps include: Choose healthy foods including fruits and vegetables. Drink water throughout the day. Get plenty of sleep each night. If you smoke, try to quit. It may ease breathing. Avoid alcohol. Keep Others Healthy The virus can spread to others. Droplets are released every time you sneeze or cough. The droplets can get into the mouth, nose, or eyes of people near you and lead to infection. To lower the chances of spreading COVID-19 to others: Stay at home until your doctor has said it is safe to leave. If you tested positive this will mean staying isolated until both of the following are true: At least 7 days have passed since the start of illness. You are free of fever for at least 72 hours without the use of medicine. During this time: - Avoid public areas, events, or transportation. Do not return to work or school until your doctor has said it is safe to do so. - Call ahead if you need to go to a medical center. Let them know you may have COVID-19. It will help them guide you where to go. They may also ask you to wear a facemask when you come to the office. - If you call for emergency medical services, let them know you may have COVID- 19. While at home: - Try to avoid close contact with others. Stay about 6 feet away. - If possible, spend most of your time in a separate room from others. - Use a face mask if you will be in close contact with others such as sharing a room or vehicle. - Have someone wipe down common surfaces in the home. Use household pocket setter lockstitch every day on areas like doorknobs, counters, or sinks. - Cough or sneeze into a tissue. Throw the tissue away right after use. If a tissue is not available, cough or sneeze into your elbow. - Wash your hands often. Wash them after sneezing or coughing. Use soap and water and wash for at least 20 seconds. Alcohol based hand can cleaner can be used if soap and water is not available. - Do not prepare food for others. Avoid sharing personal items like forks, spoons, or toothbrushes. - Avoid close contact with pets while you are sick. There is no evidence of the virus passing to pets. This is a safety step until more is known about this virus. Isolation can be frustrating. Social interaction can help. Keep in touch with friends and family through phone and tech options. You can still interact with others in your home, just keep a safe distance of about 6 feet. Follow-up: Your doctors office will check in with you to see if there are any changes in your health. You may be asked to keep track of symptoms to share with them. They will also let you know when you are clear to be in public again. Problems to Look Out For: Contact your doctor if your recovery is not going as you expect. Get emergency care if you have problems such as: - Trouble breathing - Nonstop chest pain or pressure - Changes in awareness, confusion, or problems waking - Lips or face have bluish color - Worsening of symptoms If you think you have an emergency, call for emergency medical services right away. As taken from [facility] PHILL TSANG DO Apr 30, 2021 15:53
[2021-04-30 15:58] LABS: BASO # 0.1 x10^3/uL (0.0-0.2); BASO % 1 % (0-3); EOS % 0 % (0-3); HEMATOCRIT 41.6 % (39.0-53.0); HEMOGLOBIN 14.4 g/dL (13.0-17.5); LYMPH # 0.6 x10^3/uL (1.0-4.8); LYMPH % 6 % (24-48); MEAN CORPUSCULAR HEMOGLOBIN 31 pg (25-35); MEAN CORPUSCULAR HGB CONC 35 g/dL (31-37); MEAN CORPUSCULAR VOLUME 90 fL (79-100); MONO # 0.9 x10^3/uL (0.0-1.1); MONO % 8 % (0-9); NEUT # 9.1 x10^3uL (1.8-7.7); NEUT % 85 % (31-73); PLATELET COUNT 175 x10^3/uL (140-400); RED BLOOD COUNT 4.61 x10^6/uL (4.30-5.70); RED CELL DISTRIBUTION WIDTH 14.1 % (11.5-14.5); WHITE BLOOD COUNT 10.7 x10^3/uL (4.0-11.0)
[2021-04-30 16:20] LABS: ALBUMIN 3.3 g/dL (3.4-5.0); CALCIUM 8.1 mg/dL (8.5-10.1); CREATININE 1.1 mg/dL (0.7-1.3); GFR 71.8; TOTAL BILIRUBIN 0.6 mg/dL (0.2-1.0); TOTAL PROTEIN 6.7 g/dL (6.4-8.2)
[2021-04-30 16:29] LABS: POTASSIUM 2.9 mmol/L (3.5-5.1)
[2021-04-30] MEDS ORDERED: POTASSIUM CHLORIDE 20 MEQ TABLET.ER. PO ONE (17:15)
--- NOTE | 2021-05-01 09:19 | EKG ---
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
== END 2021-04-30 18:43 | disposition home or self-care (01) ==
LOC: ER 15:15
DX: U07.1 COVID-19 (principal); E87.6 Hypokalemia; J44.9 Chronic obstructive pulmonary disease, unspecified; F17.210 Nicotine dependence, cigarettes, uncomplicated; Z88.0 Allergy status to penicillin; Z88.8 Allergy status to other drugs, medicaments and biological substances
CPT/HCPCS: 36415; 71045; 80053; 84484; 85025; 93005; 94644; 99285; J7613